=== PATIENT | male | born 1980 | race Caucasian/White ===

== ENCOUNTER 2016-10-05 12:20 | Inpatient (IN) ==
--- NOTE | 2016-10-05 12:32 | Emergency Department Note ---
Disposition Clinical Impression: Suicidal ideation Depression Qualifiers: Depression Type: unspecified Qualified Code(s): F32.9 - Major depressive disorder, single episode, unspecified Disposition: Admitted As Inpatient Condition: Good Referrals: NONE,PCP [Primary Care Provider] - Forms: ED Satisfaction Letter Time of Disposition: 18:30 Psych HPI - General Chief Complaint: ED Psychiatric Symptoms Stated Complaint: SI Time Seen by Provider: 10/05/16 12:26 Source: patient Mode of arrival: ambulatory Limitations: no limitations Nursing Notes Reviewed: Yes Vital Signs Reviewed: Yes - History of Present Illness HPI Narrative: 35-year-old male who comes in stating he's had some worsening depression with thoughts of hurting himself and others. He shouldn't had been on Seroquel but says he cannot tolerate it and she cannot function on it. Pt complaint: suicidal ideation, feels depressed If medical clearance, reason: psychiatric condition Onset (ago): day(s) Duration: constant History of similar episodes: Yes Improves with: none Worsens with: none Context: significant life stressor Associated Psychiatric Symptoms: depression, suicidal ideation Associated symptoms: Reports: denies other symptoms Traumatic symptoms: denies traumatic injury Treatments prior to arrival: none Self harm or harm to others: admits thoughts of self harm, admits thoughts of harming others - Related Data Home Medications Medication Instructions Recorded Confirmed No Known Home Drugs 10/05/16 10/05/16 Allergies Allergy/AdvReac Type Severity Reaction Status Date / Time Penicillins Allergy Hives Verified 12/05/15 16:22 vancomycin Allergy Hives Verified 12/05/15 16:22 All systems ED: reviewed and negative except as stated. Constitutional: Denies: fever, chills, weakness, weight change Eyes: Denies: eye pain, eye discharge, vision change ENT ED: Denies: ear pain, throat pain, dental pain, hearing loss, epistaxis, congestion, dysphagia Cardiovascular: Denies: chest pain, palpitations, dyspnea on exertion, edema, syncope Respiratory: Denies: cough, dyspnea, wheezes, hemoptysis, stridor Gastrointestinal: Denies: abdominal pain, nausea, vomiting, diarrhea, constipation, hematemesis, melena, hematochezia Genitourinary: Denies: urgency, dysuria, frequency, hematuria Musculoskeletal: Denies: back pain, neck pain, arthralgia, myalgia Integumentary: Denies: rash, abrasion, lesions Neurological: Denies: headache, weakness, numbness, paresthesias, confusion, abnormal gait, vertigo Psychiatric: Reports: depression, suicidal thoughts. Denies: anxiety, homicidal thoughts, auditory hallucinations, visual hallucinations Endocrine: Denies: fatigue Hematological/Lymphatic: Denies: easy bleeding, easy bruising Allergic/Immunologic: Denies: facial swelling, urticaria Past Medical History - Past Medical History Medical history: Reports: no medical history Psychiatric history: Reports: anxiety, bipolar, depression, prior suicide attempt, previous psychiatric hospitalization - Social History Smoking Status: Current every day smoker Smokeless Tobacco Status: No Alcohol use: Reports: occasionally Drug use: Reports: marijuana, methamphetamine Physical Exam - General Limitations: no limitations General appearance: alert, in no apparent distress - Head Head exam: atraumatic, normocephalic, normal inspection - Eye Eye exam: Present: normal appearance, PERRL, EOMI - ENT ENT exam: normal exam, normal oropharynx, mucous membranes moist - Neck Neck exam: Present: normal inspection, full ROM, trachea midline - Chest Chest inspection: Present: normal inspection, symmetric chest wall rise - Respiratory Respiratory exam: Present: normal lung sounds bilaterally - Cardiovascular Cardiovascular exam: Present: regular rate, normal rhythm, normal heart sounds - Abdominal Exam Abdominal exam: Present: soft, Non-Tender. Absent: tenderness, distention, guarding, rebound, rigidity - Extremities Exam Extremities exam: Present: normal inspection, full ROM. Absent: tenderness, pedal edema - Expanded Lower Extremity Exam Neurovascular/Tendon exam: Absent: motor deficit, sensory deficit, tendon deficit Gait: observed and normal - Back Exam Back exam: Present: normal inspection, full ROM. Absent: tenderness - Neurological Exam Neurological exam: Present: alert, oriented X3 - Psychiatric Psychiatric exam: Present: normal affect, normal mood - Skin Skin exam: Present: warm, dry, intact, normal color Course - Reevaluation(s) Reevaluation #1: 75-year-old with history depression comes in with suicidal ideation patient will be admitted for further evaluation Time: 18:30 - Consultations Consultation #1: Discussed with psychiatry who will admit the patient. Time: 18:29 Vital Signs Temperature 97.1 F L 10/05/16 12:23 Pulse Rate 67 10/05/16 12:23 Respiratory Rate 18 10/05/16 12:23 Blood Pressure 134/84 10/05/16 12:23 O2 Sat by Pulse Oximetry 99 10/05/16 12:23 Temperature 97.1 F L 10/05/16 12:23 Pulse Rate 67 10/05/16 12:23 Respiratory Rate 18 10/05/16 12:23 Blood Pressure 134/84 10/05/16 12:23 O2 Sat by Pulse Oximetry 99 10/05/16 12:23 Oxygen Delivery Oxygen Delivery Room Air Psych - Lab Data Result diagrams: 10/05/16 12:43 10/05/16 12:43 Lab Results 10/05/16 10/05/16 10/05/16 Range/Units 12:41 12:41 12:43 WBC 7.1 (4.3-11.1) K/mcL RBC 4.79 (4.19-5.50) M/mcL Hgb 14.0 (12.9-16.9) g/dL Hct 43.2 (37.5-50.1) % MCV 90.2 (83.0-100.0) fL MCH 29.2 (28.0-33.3) pg MCHC 32.4 (31.6-35.5) g/dL RDW 13.0 (11.5-14.5) % Plt Count 280 (140-400) K/mcL MPV 9.1 L (9.4-12.4) fL Immature Gran % 0.4 (0-4) % Seg Neutrophils % 51.8 % Lymphocytes % 33.2 % Monocytes % 10.7 % Eosinophils % 3.2 % Basophils % 0.7 % Neutrophils # 3.7 (1.6-8.9) K/mcL Lymphocytes # 2.4 (0.6-4.6) K/mcL Monocytes # 0.8 (0.0-1.3) K/mcL Eosinophils # 0.2 (0.0-0.6) K/mcL Basophils # 0.1 (0.0-0.2) K/mcL Immature Plt Fraction 2.0 (1.1-6.1) % Sodium (136-145) mEq/L Potassium (3.5-4.5) mEq/L Chloride (98-109) mEq/L Carbon Dioxide (19-29) mEq/L BUN (8-26) mg/dL Creatinine (0.72-1.25) mg/dL Est GFR ( Amer) (> 60) Est GFR (Non-Af Amer) (> 60) BUN/Creatinine Ratio (6-26) Glucose (70-99) mg/dL Calculated Osmolality (280-300) Calcium (8.6-10.8) mg/dL Urine Color Yellow (Yellow) Urine Clarity Clear (Clear) Urine pH 7.0 (5.0-8.0) pH Units Ur Specific [place] 1.026 H (1.010-1.025) Urine Protein Negative (Neg-Trace) mg/dL Urine Glucose (UA) Normal (Normal) mg/dL Urine Ketones Negative (Negative) mg/dL Urine Blood Negative (Negative) Urine Nitrite Negative (Negative) Urine Bilirubin Negative (Negative) Urine Urobilinogen Normal (Normal) mg/dL Ur Leukocyte Esterase Negative (Negative) Salicylates (15-30) mg/dL Urine Opiates Screen Negative (Idyhok=013) ng/mL Acetaminophen (10-30) mcg/mL Ur Barbiturates Screen Negative (Wvoiid=973) ng/mL Ur Phencyclidine Scrn Negative (Cutoff=25) ng/mL Ur Amphetamines Screen Positive H (Fdvics=3796) ng/mL U Benzodiazepines Scrn Negative (Bovteg=076) ng/mL Urine Cocaine Screen Negative (Cutoff= 300) ng/mL U Marijuana (THC) Screen Positive H (Cutoff = 50) ng/mL Ethyl Alcohol (0-10) mg/dL 10/05/16 Range/Units 12:43 WBC (4.3-11.1) K/mcL RBC (4.19-5.50) M/mcL Hgb (12.9-16.9) g/dL Hct (37.5-50.1) % MCV (83.0-100.0) fL MCH (28.0-33.3) pg MCHC (31.6-35.5) g/dL RDW (11.5-14.5) % Plt Count (140-400) K/mcL MPV (9.4-12.4) fL Immature Gran % (0-4) % Seg Neutrophils % % Lymphocytes % % Monocytes % % Eosinophils % % Basophils % % Neutrophils # (1.6-8.9) K/mcL Lymphocytes # (0.6-4.6) K/mcL Monocytes # (0.0-1.3) K/mcL Eosinophils # (0.0-0.6) K/mcL Basophils # (0.0-0.2) K/mcL Immature Plt Fraction (1.1-6.1) % Sodium 142 (136-145) mEq/L Potassium 3.9 (3.5-4.5) mEq/L Chloride 107 (98-109) mEq/L Carbon Dioxide 26 (19-29) mEq/L BUN 17 (8-26) mg/dL Creatinine 1.29 H (0.72-1.25) mg/dL Est GFR ( Amer) > 60 (> 60) Est GFR (Non-Af Amer) > 60 (> 60) BUN/Creatinine Ratio 13 (6-26) Glucose 73 (70-99) mg/dL Calculated Osmolality 294 (280-300) Calcium 9.1 (8.6-10.8) mg/dL Urine Color (Yellow) Urine Clarity (Clear) Urine pH (5.0-8.0) pH Units Ur Specific [place] (1.010-1.025) Urine Protein (Neg-Trace) mg/dL Urine Glucose (UA) (Normal) mg/dL Urine Ketones (Negative) mg/dL Urine Blood (Negative) Urine Nitrite (Negative) Urine Bilirubin (Negative) Urine Urobilinogen (Normal) mg/dL Ur Leukocyte Esterase (Negative) Salicylates < 5.0 L (15-30) mg/dL Urine Opiates Screen (Dsuyma=454) ng/mL Acetaminophen < 1.0 L (10-30) mcg/mL Ur Barbiturates Screen (Fwhbhz=742) ng/mL Ur Phencyclidine Scrn (Cutoff=25) ng/mL Ur Amphetamines Screen (Emvxtr=8040) ng/mL U Benzodiazepines Scrn (Kqzyly=167) ng/mL Urine Cocaine Screen (Cutoff= 300) ng/mL U Marijuana (THC) Screen (Cutoff = 50) ng/mL Ethyl Alcohol < 10 (0-10) mg/dL Psychiatric Medical Clearance - Medical Clearance Checklist Does the patient have a NEW psychiatric condition?: No Any abnormalities indicating possible medical illness?: No Any history of medical issues?: No Medical History: No Social History Section defined Any abnormal vital signs prior to transfer?: No Current Vitals: Last Vital Signs Temp 97.1 F L 10/05/16 12:23 Pulse 67 08/31/17 12:23 Resp 18 10/05/16 12:23 BP 134/84 10/05/16 12:23 Pulse Ox 99 10/05/16 12:23 Is the patient intoxicated or cognitively impaired?: No Psychiatric Lab Panel: Drug Levels and Toxicity 10/05/16 10/05/16 12:41 12:43 Urine Opiates Screen Negative Acetaminophen < 1.0 L Ur Barbiturates Screen Negative Ur Phencyclidine Scrn Negative Ur Amphetamines Screen Positive H U Benzodiazepines Scrn Negative Urine Cocaine Screen Negative U Marijuana (THC) Screen Positive H Ethyl Alcohol < 10 Any abnormalities on the physical exam?: No Any abnormal labs?: No Abnormal Labs: Abnormal lab results MPV 9.1 fL (9.4-12.4) L 10/05/16 12:43 Creatinine 1.29 mg/dL (0.72-1.25) H 10/05/16 12:43 Ur Specific [place] 1.026 (1.010-1.025) H 10/05/16 12:41 Salicylates < 5.0 mg/dL (15-30) L 10/05/16 12:43 Acetaminophen < 1.0 mcg/mL (10-30) L 10/05/16 12:43 Ur Amphetamines Screen Positive ng/mL (Gyaxqr=7714) H 10/05/16 12:41 U Marijuana (THC) Screen Positive ng/mL (Cutoff = 50) H 10/05/16 12:41 Does the patient require durable medical equiptment?: No Is the patient ambulatory?: Yes Is the patient a fall risk?: No Has the patient been medically cleared?: Yes Any acute medical condition require Tx prior to transfer?: No Statement of Medical Clearance: I have evaluated the patient, reviewed diagnostic information, and certify that the patient's medical condition is sufficiently stable that transfer to the psychiatric unit does not pose a significant risk of deterioration.
[2016-10-05 12:50] LABS: Basophils # 0.1 K/mcL (0.0-0.2); Basophils % 0.7 %; Eosinophils # 0.2 K/mcL (0.0-0.6); Eosinophils % 3.2 %; Hematocrit 43.2 % (37.5-50.1); Immature Granulocytes % 0.4 % (0-4); Lymphocytes # 2.4 K/mcL (0.6-4.6); Lymphocytes % 33.2 %; Mean Corpuscular HGB Conc 32.4 g/dL (31.6-35.5); Mean Corpuscular Hemoglobin 29.2 pg (28.0-33.3); Mean Corpuscular Volume 90.2 fL (83.0-100.0); Mean Platelet Volume 9.1 fL (9.4-12.4); Monocytes # 0.8 K/mcL (0.0-1.3); Monocytes % 10.7 %; Neutrophils # 3.7 K/mcL (1.6-8.9); Platelet Count 280 K/mcL (140-400); Red Blood Count 4.79 M/mcL (4.19-5.50); Segmented Neutrophils % 51.8 %
[2016-10-05 12:52] LABS: Bilirubin,Urine Negative (Negative); Blood,Urine Negative (Negative); Clarity,Urine Clear (Clear); Color,Urine Yellow (Yellow); Glucose,Urine (UA) Normal (Normal); Ketones,Urine Negative (Negative); Leukocyte Esterase,Urine Negative (Negative); Nitrite,Urine Negative (Negative); Protein,Urine Negative (Neg-Trace); Specific Gravity,Urine 1.026 (1.010-1.025); Urobilinogen,Urine Normal (Normal)
[2016-10-05 12:57] LABS: Amphetamine Screen,Urine Positive ng/mL (Cutoff=1000); Barbiturate Screen,Urine Negative ng/mL (Cutoff=200); Benzodiazepines Screen,Urine Negative ng/mL (Cutoff=200); Cannabinoid Screen,Urine Positive ng/mL (Cutoff = 50); Cocaine Screen,Urine Negative ng/mL (Cutoff= 300); Opiate Screen,Urine Negative ng/mL (Cutoff=300); Phencyclidine Screen,Urine Negative ng/mL (Cutoff=25)
[2016-10-05 13:04] LABS: Acetaminophen < 1.0 mcg/mL (10-30); BUN/Creatinine Ratio 13 (6-26); Blood Urea Nitrogen 17 mg/dL (8-26); Calcium 9.1 mg/dL (8.6-10.8); Carbon Dioxide 26 mEq/L (19-29); Chloride 107 mEq/L (98-109); Ethanol < 10 mg/dL (0-10); Glucose 73 mg/dL (70-99); Osmolality,Calculated 294 (280-300); Potassium 3.9 mEq/L (3.5-4.5); Salicylate < 5.0 mg/dL (15-30); Sodium 142 mEq/L (136-145); eGFR For African Americans > 60 (> 60); eGFR For Non-African Americans > 60 (> 60)
[2016-10-05] MEDS ORDERED: MOM Conc 10 ML UD.LIQ PO PRN (20:38)
[2016-10-05] MEDS ORDERED: Haloperidol Lactate 5 MG/ML VIAL IM PRN (20:38)
[2016-10-05] MEDS ORDERED: Acetaminophen 325 MG TABLET PO PRN (20:38)
[2016-10-05] MEDS ORDERED: *HR* LORazepam 1 MG TABLET PO PRN (20:38)
[2016-10-05] MEDS ORDERED: *HR* LORazepam 2 MG/ML VIAL IM PRN (20:38)
[2016-10-05] MEDS ORDERED: Mag Hydrox/Al Hydrox/Simeth 30 ML UDC PO PRN (20:38)
[2016-10-05] MEDS ORDERED: hydrOXYzine pamoate 25 MG CAPSULE PO PRN (20:38)
[2016-10-05] MEDS: traZODone 50 MG TABLET PO PRN (21:12)
[2016-10-06] MEDS: Nicotine 21 MG PATCH.TD24 TD SCH (09:06)
--- NOTE | 2016-10-06 09:33 | Psychiatry History & Physical ---
Date of Encounter: 10/06/16 Time of Encounter: 09:33 History of Present Illness Patient Stated Chief Complaint: "im hearing voices" Medicare Admission Attestation: For traditional Medicare patients the provided hospital inpatient services are reasonable and necessary and in the case of services not specified as inpatient -only under 42 CFR 419.22 (n), that they are appropriately provided as inpatient services in accordance 42 CFR 412.3. For Critical Access Hospital the patient may reasonably be expected to be discharged or transferred to a hospital within 96 hours after admission to the Critical Access Hospital. Admitted From: Emergency Dept History of Present Illness: Mr. Redman is a 35 year old male with a past psychiatric history of schizoaffective disorder admitted from the emergency department. Pt stated he's had some worsening depression with thoughts of hurting himself and others. On evaluation with patient this morning he was in his room asleep he was somewhat cooperative with the evaluation patient was very irritable when questions were being asked. Patient reports that he is in the hospital because he is hearing voices and he reports he has been hearing these voices for 12 years and reports that every time he comes to get help no be helps him when asked patient today patient reports that emergency department. Patient reports that the only medication he has been tried on for these "voices" is their quality reports that he cannot take that because it makes him too tired. 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 ". Patient reports that he does not have a relationship with his family and reports that he does not have a support system. Patient reports he does not get anything, or any type of disability or SSI. Patient endorsed depressive symptoms patient endorses anxiety symptoms patient did not endorse manic or hypomanic symptoms patient endorses auditory hallucinations patient denied visual hallucinations patient denied paranoia. Patient endorsed suicidal ideations patient denied homicidal ideations patient is agreeable to medication initiation to help with his mood. 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" poor relationship with family pt admits to using drugs but reports he doesnt "abuse" drugs Family psychiatric history: Unknown Family History of Suicide: None - Social History Smoking Status: Current every day smoker Smokeless Tobacco Status: No Alcohol use: occasionally Drug use: marijuana, methamphetamine - Family History Mother Hx Family Medical Disorders: No Father History Unknown: Yes Medications & Allergies No Known Home Drugs 10/05/16 [History] 3 Allergy/AdvReac Type Severity Reaction Status Date / Time Penicillins Allergy Hives Verified 12/05/15 16:22 vancomycin Allergy Hives Verified 12/05/15 16:22 Review of Systems Psychiatric: Reports: depression, anxiety, abnormal sleep pattern, suicidal ideation, auditory hallucinations, difficulty concentrating, hopelessness, irritability, mood swings Mental Status Exam Patient orientation: Yes Person, Yes Time, Yes Place, Yes Circumstance Level of alertness: Other Patient appearance: Unkempt, Disheveled Behavior: anxious, restless, guarded Psychomotor activity: Slowed Eye contact: Minimal Contact Mood description: Depressed, Anxious, Labile, Irritable Affect description: labile, flat Speech pattern: Normal rate, Normal rhythm, Normal tone Speech volume: Normal Thought process: Logical, Linear Thought content: Yes Suicidal ideation, Yes Preoccupation Perceptual disturbances: Yes Auditory hallucinations Memory description: Grossly Intact, Immediate Intact, Recent Intact Patient reliability: Questionable Historian Intelligence estimate: Average Judgment: Limited Insight: Minimal Exam - HEENT Head exam IM: Present: normal inspection Eye exam IM: Present: EOMI ENT exam IM: Present: normal exam - Neurological Neurological exam IM: Present: alert Results - Vital Signs Vital signs: Temp Pulse Resp BP Pulse Ox 97.2 F L 63 16 129/82 99 10/06/16 09:00 10/06/16 09:00 10/06/16 09:00 10/06/16 09:00 10/05/16 12:23 - Labs Labs: Laboratory Last Values WBC 7.1 K/mcL (4.3-11.1) 10/05/16 12:43 RBC 4.79 M/mcL (4.19-5.50) 10/05/16 12:43 Hgb 14.0 g/dL (12.9-16.9) 10/05/16 12:43 Hct 43.2 % (37.5-50.1) 10/05/16 12:43 MCV 90.2 fL (83.0-100.0) 10/05/16 12:43 MCH 29.2 pg (28.0-33.3) 10/05/16 12:43 MCHC 32.4 g/dL (31.6-35.5) 10/05/16 12:43 RDW 13.0 % (11.5-14.5) 10/05/16 12:43 Plt Count 280 K/mcL (140-400) 10/05/16 12:43 MPV 9.1 fL (9.4-12.4) L 10/05/16 12:43 Immature Gran % 0.4 % (0-4) 10/05/16 12:43 Seg Neutrophils % 51.8 % 10/05/16 12:43 Lymphocytes % 33.2 % 10/05/16 12:43 Monocytes % 10.7 % 10/05/16 12:43 Eosinophils % 3.2 % 10/05/16 12:43 Basophils % 0.7 % 10/05/16 12:43 Neutrophils # 3.7 K/mcL (1.6-8.9) 10/05/16 12:43 Lymphocytes # 2.4 K/mcL (0.6-4.6) 10/05/16 12:43 Monocytes # 0.8 K/mcL (0.0-1.3) 10/05/16 12:43 Eosinophils # 0.2 K/mcL (0.0-0.6) 10/05/16 12:43 Basophils # 0.1 K/mcL (0.0-0.2) 10/05/16 12:43 Immature Plt Fraction 2.0 % (1.1-6.1) 10/05/16 12:43 Sodium 142 mEq/L (136-145) 10/05/16 12:43 Potassium 3.9 mEq/L (3.5-4.5) 10/05/16 12:43 Chloride 107 mEq/L (98-109) 10/05/16 12:43 Carbon Dioxide 26 mEq/L (19-29) 10/05/16 12:43 BUN 17 mg/dL (8-26) 10/05/16 12:43 Creatinine 1.29 mg/dL (0.72-1.25) H 10/05/16 12:43 Est GFR ( Amer) > 60 (> 60) 10/05/16 12:43 Est GFR (Non-Af Amer) > 60 (> 60) 10/05/16 12:43 BUN/Creatinine Ratio 13 (6-26) 10/05/16 12:43 Glucose 73 mg/dL (70-99) 10/05/16 12:43 Calculated Osmolality 294 (280-300) 10/05/16 12:43 Calcium 9.1 mg/dL (8.6-10.8) 10/05/16 12:43 Urine Color Yellow (Yellow) 10/05/16 12:41 Urine Clarity Clear (Clear) 10/05/16 12:41 Urine pH 7.0 pH Units (5.0-8.0) 10/05/16 12:41 Ur Specific [place] 1.026 (1.010-1.025) H 10/05/16 12:41 Urine Protein Negative mg/dL (Neg-Trace) 10/05/16 12:41 Urine Glucose (UA) Normal mg/dL (Normal) 10/05/16 12:41 Urine Ketones Negative mg/dL (Negative) 10/05/16 12:41 Urine Blood Negative (Negative) 10/05/16 12:41 Urine Nitrite Negative (Negative) 10/05/16 12:41 Urine Bilirubin Negative (Negative) 10/05/16 12:41 Urine Urobilinogen Normal mg/dL (Normal) 10/05/16 12:41 Ur Leukocyte Esterase Negative (Negative) 10/05/16 12:41 Salicylates < 5.0 mg/dL (15-30) L 10/05/16 12:43 Urine Opiates Screen Negative ng/mL (Njerfv=906) 10/05/16 12:41 Acetaminophen < 1.0 mcg/mL (10-30) L 10/05/16 12:43 Ur Barbiturates Screen Negative ng/mL (Guqqyp=565) 10/05/16 12:41 Ur Phencyclidine Scrn Negative ng/mL (Cutoff=25) 10/05/16 12:41 Ur Amphetamines Screen Positive ng/mL (Iyxpfq=8816) H 10/05/16 12:41 U Benzodiazepines Scrn Negative ng/mL (Tiievu=675) 10/05/16 12:41 Urine Cocaine Screen Negative ng/mL (Cutoff= 300) 10/05/16 12:41 U Marijuana (THC) Screen Positive ng/mL (Cutoff = 50) H 10/05/16 12:41 Ethyl Alcohol < 10 mg/dL (0-10) 10/05/16 12:43 Assessment and Plan (1) Bipolar disorder Current visit: No Status: Acute Plan: Admit inpatient for safety and stabilization, Encourage participation in unit milieu, Group Therapy, Monitor sleep, Monitor appetite Additional Plan: start risperdal 0.5 mg bid Risks, benefits, side effects, alternatives discussed w/pt: Yes Patient agreeable to treatment: Yes Estimated Length of Stay (Days): 5 Qualifiers: Active/Remission status: currently active Current bipolar episode type: mixed Current episode severity: unspecified Qualified Code(s): F31.60 - Bipolar disorder, current episode mixed, unspecified
[2016-10-06] MEDS: risperiDONE 0.25 MG TABLET PO SCH ×2 (10:17→20:53)
[2016-10-07] MEDS: Nicotine 21 MG PATCH.TD24 TD SCH (08:47)
[2016-10-07] MEDS: risperiDONE 0.25 MG TABLET PO SCH ×2 (08:47→20:39)
--- NOTE | 2016-10-07 13:16 | Psychiatry Progress Note ---
Date of Encounter: 10/07/16 Time of Encounter: 01:05 Subjective Interval history: Patient seen and interviewed. History and physical examination reviewed. Patient started to notice improvement in his mood. His symptoms have started to respond to the therapeutic milieu and medications. He is denying any suicidal or homicidal ideations. He is endorsing vague auditory hallucinations. He started to feel more more positive future oriented and hopeful. He is not overtly psychotic or manic. He is tolerating medications fairly well. Overall making progress Review of Systems Psychiatric: Reports: anxiety, auditory hallucinations, difficulty concentrating Objective: Exam Patient orientation: Yes Person, Yes Time, Yes Place Level of alertness: Alert Patient appearance: Appropriate, Well Groomed Behavior: calm, cooperative Psychomotor activity: Normal Eye contact: Maintains Eye Contact Mood description: Anxious Affect description: constricted, dysphoric Speech pattern: Normal rate, Normal rhythm, Normal tone Speech volume: Normal Thought process: Linear, Goal Oriented Thought content: No Suicidal ideation, No Homicidal ideation, No Overt delusions Perceptual disturbances: Yes Auditory hallucinations, No Visual hallucinations Judgment: Fair Insight: Partial Results - Vital Signs Vital Signs: Temp Pulse Resp BP Pulse Ox 97.2 F L 70 16 123/78 99 10/07/16 09:00 10/07/16 09:00 10/07/16 09:00 10/07/16 09:00 10/05/16 12:23 Assessment and Plan (1) Bipolar disorder Current visit: No Status: Acute Plan: Continue hospitalization, Close observation, Suicide Precautions per unit protocol, Encourage participation in unit milieu, Group Therapy, Monitor sleep, Monitor appetite Additional Plan: Possible discharge tomorrow Risks, benefits, side effects, alternatives discussed w/pt: Yes Patient agreeable to treatment: Yes Qualifiers: Active/Remission status: currently active Current bipolar episode type: mixed Current episode severity: unspecified Qualified Code(s): F31.60 - Bipolar disorder, current episode mixed, unspecified Consult Discharge Plan - Plan Referrals: [facility] [Outside] - 10/27/16 11:00 am (The above appointment is with [facility], for outpatient psychiatric assessment and medication management services. Please arrive 30 minutes early to complete paperwork. Please bring your photo ID and medication list. This is the first available appointment. You may contact the office regularly to check for cancellations that may allow you to be seen sooner. Additionally, the new case operator assigned to you will contact you directly to schedule your intake appointment for case management and mental health counseling services. )
[2016-10-07] MEDS: traZODone 50 MG TABLET PO PRN (20:39)
[2016-10-08] MEDS: risperiDONE 0.25 MG TABLET PO SCH (08:27)
[2016-10-08] MEDS: Nicotine 21 MG PATCH.TD24 TD SCH (08:27)
[2016-10-08 09:05] VITALS: BP 119/87
--- NOTE | 2016-10-08 12:41 | Discharge Summary ---
Date of Encounter: 10/08/16 Time of Encounter: 11:59 Diagnosis - Discharge Diagnosis (1) Bipolar disorder Status: Acute Qualifiers: Active/Remission status: currently active Current bipolar episode type: mixed Current episode severity: unspecified Qualified Code(s): F31.60 - Bipolar disorder, current episode mixed, unspecified Medications - Discharge Medications Prescriptions: hydrOXYzine pamoate [HydrOXYzine Pamoate] 50 mg PO TID PRN #90 PRN Reason: Anxiety risperiDONE [RisperDAL] 0.5 mg PO BID #60 tab traZODone [TraZODone] 50 mg PO HS PRN #30 tab PRN Reason: Insomnia hydrOXYzine pamoate [HydrOXYzine Pamoate] 50 mg PO TID PRN #90 10/08/16 [Rx] risperiDONE [RisperDAL] 0.5 mg PO BID #60 tab 10/08/16 [Rx] traZODone [TraZODone] 50 mg PO HS PRN #30 tab 10/08/16 [Rx] 3 Allergy/AdvReac Type Severity Reaction Status Date / Time Penicillins Allergy Hives Verified 12/05/15 16:22 vancomycin Allergy Hives Verified 12/05/15 16:22 Provider Date of admission: 10/05/16 18:36 Primary care physician: PCP NONE Discharging clinician: Maggie Leonard Assessment and Plan - Patient/Caregiver Discharge Instructions Activity: resume usual activities as tolerated Diet: regular diet - Follow up Plan Follow up with: [facility] [Outside] - 10/27/16 11:00 am (The above appointment is with [facility], for outpatient psychiatric assessment and medication management services. Please arrive 30 minutes early to complete paperwork. Please bring your photo ID and medication list. This is the first available appointment. You may contact the office regularly to check for cancellations that may allow you to be seen sooner. Additionally, the new rehabilitation case coordinator assigned to you will contact you directly to schedule your intake appointment for case management and mental health counseling services. ) Overall status at discharge: Stable Disposition: Transfer Other Hospital Course Hospital course: Mr. Redman is a 35 year old male who was hospitalized a diagnoses of bipolar disorder. After reviewing the symptom diagnosis treatment plan and explaining the risks benefits side effects and alternatives to treatment and consequences of no treatment and getting an informed consent from the patient he was started on Risperdal 0.5 mg twice a day for mood stabilization and Vistaril 25 mg 3 times a day when necessary which was increased to 50 mg 3 times a day when necessary for anxiety and trazodone 50 mg at bedtime for insomnia. Patient responded fairly well to the therapeutic milieu his symptoms subsided he became more bright and cheerful mood became more stable he was denying any suicidal or homicidal ideation or any psychotic or manic symptoms on discharge. He was positive and future oriented. He tolerated medications fairly well did not report any side effects. Overall his discharge condition was stable Time spent discussing smoking cessation with patient: 3 to 10 minutes Does patient wish to continue nicotine replacement upon disc: No - Time Spent with Patient Total time spent providing and/or coordinating discharge services: Less than 30 minutes Quality - Multiple Antipsychotics Patient discharged on 2 or more antipsychotic medications: No Procedures - Procedures Procedures: Medication Management, Crisis Stabilization, Supportive Therapy, Group Therapy, Psychoeducational Therapy Mental Status Exam - Mental Status Exam Patient orientation: Yes Person, Yes Time, Yes Place Level of alertness: Alert Patient appearance: Appropriate, Well Groomed Behavior: calm, cooperative Psychomotor activity: Normal Eye contact: Maintains Eye Contact Mood description: Euthymic/stable Affect description: congruent with mood, full range Speech pattern: Normal rate, Normal rhythm, Normal tone Speech Volume: Normal Thought process: Linear, Goal Oriented Thought Content: No Suicidal ideation, No Homicidal ideation, No Overt delusions Perceptual Disturbances: No Auditory hallucinations, No Visual hallucinations Judgment: Limited Insight: Partial
== END 2016-10-08 18:18 | disposition other institution (70) | DRG 753 ==
LOC: EMEROO 12:20 → 1ANU 18:36 → SUATTDRO 18:36 → 1ANU 20:24
PROVIDERS: ADMIT Psychiatry & Neurology Psychiatry; ATTEND Psychiatry & Neurology Psychiatry

== ENCOUNTER 2017-02-21 14:05 | Inpatient (IN) ==
--- NOTE | 2017-02-21 14:32 | Emergency Department Note ---
Disposition Clinical Impression: Suicidal ideation Depression Qualifiers: Depression Type: unspecified Qualified Code(s): F32.9 - Major depressive disorder, single episode, unspecified Disposition: Admitted As Inpatient Condition: Fair Referrals: NONE,PCP [Primary Care Provider] - Forms: ED Satisfaction Letter Time of Disposition: 16:56 Psych HPI - General Chief Complaint: ED Psychiatric Symptoms Stated Complaint: Depressed; SI Time Seen by Provider: 02/21/17 14:18 Source: patient Mode of arrival: ambulatory Limitations: no limitations Nursing Notes Reviewed: Yes Vital Signs Reviewed: Yes - History of Present Illness HPI Narrative: Nontoxic-appearing 36-year-old male presents for evaluation of worsening depression and suicidal ideation. He states that this has gradually gotten worse over the course of the past several months. He states he has not taken his psychiatric medication "in quite some time, because it was not helping". He admits to having several plans in which she would consider inflicting self harm, one of which including "getting a bunch of heroin because it is already laced with fentanyl anyway and it would not take much to do the job". He denies any thoughts of harming others. He does admit to auditory hallucinations , stating "I hear voices screaming inside my head". HE DENIES ANY OTHER COMPLAINTS OR MEDICAL CONCERNS AT THIS TIME. Pt complaint: suicidal ideation, feels depressed Onset (ago): month(s) Duration: getting worse History of similar episodes: Yes Improves with: none Worsens with: none Context: not taking psychiatric medications Alleged intoxication: No Associated Psychiatric Symptoms: depression, suicidal ideation, visual hallucinations Associated symptoms: Reports: denies other symptoms Traumatic symptoms: denies traumatic injury Self harm or harm to others: admits thoughts of self harm, has plan - Related Data Previous Rx's Medication Instructions Recorded hydrOXYzine pamoate [HydrOXYzine 50 mg PO TID PRN #90 10/08/16 Pamoate] risperiDONE [RisperDAL] 0.5 mg PO BID #60 tab 10/08/16 traZODone [TraZODone] 50 mg PO HS PRN #30 tab 10/08/16 Sulfamethoxazole/Trimeth DS 1 each PO BID 7 Days #14 tablet 11/23/16 [Bactrim DS] cephALEXin [Keflex] 500 mg PO QID 7 Days #28 capsule 11/23/16 Allergies Allergy/AdvReac Type Severity Reaction Status Date / Time Penicillins Allergy Hives Verified 11/23/16 08:03 vancomycin Allergy Hives Verified 11/23/16 08:03 All systems ED: reviewed and negative except as stated. Constitutional: Denies: fever, chills, weakness, weight change Eyes: Denies: eye pain, eye discharge, vision change ENT ED: Denies: ear pain, throat pain, dental pain, hearing loss, epistaxis, congestion, dysphagia Cardiovascular: Denies: chest pain, palpitations, dyspnea on exertion, edema, syncope Respiratory: Denies: cough, dyspnea, wheezes, hemoptysis, stridor Gastrointestinal: Denies: abdominal pain, nausea, vomiting, diarrhea, constipation, hematemesis, melena, hematochezia Genitourinary: Denies: urgency, dysuria, frequency, hematuria Musculoskeletal: Denies: back pain, neck pain, arthralgia, myalgia Integumentary: Denies: rash, abrasion, lesions Neurological: Denies: headache, weakness, numbness, paresthesias, confusion, abnormal gait, vertigo Psychiatric: Reports: as per HPI, depression, suicidal thoughts, auditory hallucinations. Denies: anxiety, homicidal thoughts, visual hallucinations Endocrine: Denies: fatigue Hematological/Lymphatic: Denies: easy bleeding, easy bruising Allergic/Immunologic: Denies: facial swelling, urticaria Past Medical History - Past Medical History Attestation: Yes The following information was validated with the patient. Source: patient, nursing notes reviewed Medical history: Reports: no medical history Surgical history: Reports: non-contributory Psychiatric history: Reports: anxiety, bipolar, depression, PTSD, prior suicide attempt, previous psychiatric hospitalization - Social History Smoking Status: Current every day smoker Smokeless Tobacco Status: No Alcohol use: Reports: occasionally Drug use: Reports: marijuana, methamphetamine Physical Exam - General Limitations: no limitations General appearance: alert, in no apparent distress - Head Head exam: atraumatic, normocephalic, normal inspection - Eye Eye exam: Present: normal appearance, PERRL, EOMI. Absent: nystagmus - ENT ENT exam: mucous membranes moist - Neck Neck exam: Present: normal inspection, full ROM, trachea midline - Chest Chest inspection: Present: normal inspection, symmetric chest wall rise - Respiratory Respiratory exam: Present: normal lung sounds bilaterally. Absent: respiratory distress, wheezes, stridor, accessory muscle use, prolonged expiratory phase - Cardiovascular Cardiovascular exam: Present: regular rate, normal rhythm, normal heart sounds - Abdominal Exam Abdominal exam: Present: soft, Non-Tender, normal bowel sounds - Extremities Exam Extremities exam: Present: normal inspection, full ROM. Absent: tenderness, pedal edema - Neurological Exam Neurological exam: Present: alert, oriented X3 - Psychiatric Psychiatric exam: Present: anxious - Skin Skin exam: Present: warm, dry, intact, normal color Course Course Narrative: 1554: I spoke with ELIZABETH Turner with [facility]. He will send a [facility] small business sales representative to evaluate the patient as soon as possible. 1656: [facility] will admit the patient to the inpatient psychiatric unit here at this facility. Vital Signs Temperature 97.9 F 02/21/17 14:06 Pulse Rate 94 02/21/17 14:06 Respiratory Rate 16 02/21/17 14:06 Blood Pressure 118/82 02/21/17 14:06 O2 Sat by Pulse Oximetry 97 02/21/17 14:06 Temperature 97.9 F 02/21/17 14:06 Pulse Rate 94 02/21/17 14:06 Respiratory Rate 16 02/21/17 14:06 Blood Pressure 118/82 02/21/17 14:06 O2 Sat by Pulse Oximetry 97 02/21/17 14:06 Oxygen Delivery Oxygen Delivery Room Air Psych - Lab Data Result diagrams: 02/21/17 14:30 02/21/17 14:30 Lab Results 02/21/17 02/21/17 02/21/17 Range/Units 14:30 14:30 14:40 WBC 8.0 (4.3-11.1) K/mcL RBC 5.76 H (4.19-5.50) M/mcL Hgb 16.2 (12.9-16.9) g/dL Hct 49.8 (37.5-50.1) % MCV 86.5 (83.0-100.0) fL MCH 28.1 (28.0-33.3) pg MCHC 32.5 (31.6-35.5) g/dL RDW 13.6 (11.5-14.5) % Plt Count 333 (140-400) K/mcL MPV 9.4 (9.4-12.4) fL Immature Gran % 0.3 (0-4) % Seg Neutrophils % 53.8 % Lymphocytes % 33.7 % Monocytes % 10.1 % Eosinophils % 1.5 % Basophils % 0.6 % Neutrophils # 4.3 (1.6-8.9) K/mcL Lymphocytes # 2.7 (0.6-4.6) K/mcL Monocytes # 0.8 (0.0-1.3) K/mcL Eosinophils # 0.1 (0.0-0.6) K/mcL Basophils # 0.1 (0.0-0.2) K/mcL Immature Plt Fraction 3.1 (1.1-6.1) % Sodium 137 (136-145) mEq/L Potassium 4.1 (3.5-5.1) mEq/L Chloride 102 (98-107) mEq/L Carbon Dioxide 30 H (23-29) mEq/L BUN 21 H (6-20) mg/dL Creatinine 1.20 (0.70-1.30) mg/dL Est GFR ( Amer) > 60 (> 60) Est GFR (Non-Af Amer) > 60 (> 60) BUN/Creatinine Ratio 18 (6-26) Glucose 81 (70-105) mg/dL Calculated Osmolality 286 (280-300) Calcium 10.1 (8.6-10.3) mg/dL Urine Color Dark Yellow (Yellow) Urine Clarity Clear (Clear) Urine pH 6.0 (5.0-8.0) pH Units Ur Specific Mel[place] > 1.030 H (1.010-1.025) Urine Protein Trace (Neg-Trace) mg/dL Urine Glucose (UA) Normal (Normal) mg/dL Urine Ketones Negative (Negative) mg/dL Urine Blood Negative (Negative) Urine Nitrite Negative (Negative) Urine Bilirubin Small H (Negative) Urine Urobilinogen Normal (Normal) mg/dL Ur Leukocyte Esterase Negative (Negative) Urine Microscopic RBC 3-5 H (0-3) per hpf Urine Microscopic WBC 0-3 (0-3) per hpf Ur Squamous Epith Cells Few (None-Few) per lpf Urine Bacteria None Seen (None-Few) per hpf Hyaline Casts None Seen (None-Few) per lpf Salicylates < 5.0 L (15.0-30.0) mg/dL Urine Opiates Screen (Qklydc=466) ng/mL Acetaminophen < 1.0 L (10-30) mcg/mL Ur Barbiturates Screen (Tieuxm=866) ng/mL Ur Phencyclidine Scrn (Cutoff=25) ng/mL Ur Amphetamines Screen (Hzdisc=3690) ng/mL U Benzodiazepines Scrn (Lovexz=811) ng/mL Urine Cocaine Screen (Cutoff= 300) ng/mL U Marijuana (THC) Screen (Cutoff = 50) ng/mL Ethyl Alcohol < 10 (0-10) mg/dL 02/21/17 Range/Units 14:40 WBC (4.3-11.1) K/mcL RBC (4.19-5.50) M/mcL Hgb (12.9-16.9) g/dL Hct (37.5-50.1) % MCV (83.0-100.0) fL MCH (28.0-33.3) pg MCHC (31.6-35.5) g/dL RDW (11.5-14.5) % Plt Count (140-400) K/mcL MPV (9.4-12.4) fL Immature Gran % (0-4) % Seg Neutrophils % % Lymphocytes % % Monocytes % % Eosinophils % % Basophils % % Neutrophils # (1.6-8.9) K/mcL Lymphocytes # (0.6-4.6) K/mcL Monocytes # (0.0-1.3) K/mcL Eosinophils # (0.0-0.6) K/mcL Basophils # (0.0-0.2) K/mcL Immature Plt Fraction (1.1-6.1) % Sodium (136-145) mEq/L Potassium (3.5-5.1) mEq/L Chloride (98-107) mEq/L Carbon Dioxide (23-29) mEq/L BUN (6-20) mg/dL Creatinine (0.70-1.30) mg/dL Est GFR ( Amer) (> 60) Est GFR (Non-Af Amer) (> 60) BUN/Creatinine Ratio (6-26) Glucose (70-105) mg/dL Calculated Osmolality (280-300) Calcium (8.6-10.3) mg/dL Urine Color (Yellow) Urine Clarity (Clear) Urine pH (5.0-8.0) pH Units Ur Specific [place] (1.010-1.025) Urine Protein (Neg-Trace) mg/dL Urine Glucose (UA) (Normal) mg/dL Urine Ketones (Negative) mg/dL Urine Blood (Negative) Urine Nitrite (Negative) Urine Bilirubin (Negative) Urine Urobilinogen (Normal) mg/dL Ur Leukocyte Esterase (Negative) Urine Microscopic RBC (0-3) per hpf Urine Microscopic WBC (0-3) per hpf Ur Squamous Epith Cells (None-Few) per lpf Urine Bacteria (None-Few) per hpf Hyaline Casts (None-Few) per lpf Salicylates (15.0-30.0) mg/dL Urine Opiates Screen Negative (Hbncjm=582) ng/mL Acetaminophen (10-30) mcg/mL Ur Barbiturates Screen Negative (Goltfm=599) ng/mL Ur Phencyclidine Scrn Negative (Cutoff=25) ng/mL Ur Amphetamines Screen Positive H (Basgod=4907) ng/mL U Benzodiazepines Scrn Negative (Jdwgpo=602) ng/mL Urine Cocaine Screen Negative (Cutoff= 300) ng/mL U Marijuana (THC) Screen Positive H (Cutoff = 50) ng/mL Ethyl Alcohol (0-10) mg/dL Psychiatric Medical Clearance - Medical Clearance Checklist Does the patient have a NEW psychiatric condition?: No Any abnormalities indicating possible medical illness?: No Any history of medical issues?: No Medical History: Acute psychosis (Acute) Bipolar disorder (Acute) Anxiety (Acute) Cannabis dependence (Acute) Amphetamine addiction (Acute) Depression (Acute) Suicidal ideation (Acute) Abscess of skin (Inactive) Generalized abdominal pain (Inactive) Otitis externa (Inactive) No Social History Section defined Any abnormal vital signs prior to transfer?: No Current Vitals: Last Vital Signs Temp 97.9 F 02/21/17 14:06 Pulse 94 02/21/17 14:06 Resp 16 02/21/17 14:06 BP 118/82 02/21/17 14:06 Pulse Ox 97 02/21/17 14:06 Is the patient intoxicated or cognitively impaired?: No Psychiatric Lab Panel: Drug Levels and Toxicity 02/21/17 02/21/17 14:30 14:40 Urine Opiates Screen Negative Acetaminophen < 1.0 L Ur Barbiturates Screen Negative Ur Phencyclidine Scrn Negative Ur Amphetamines Screen Positive H U Benzodiazepines Scrn Negative Urine Cocaine Screen Negative U Marijuana (THC) Screen Positive H Ethyl Alcohol < 10 Any abnormalities on the physical exam?: No Any abnormal labs?: No Abnormal Labs: Abnormal lab results RBC 5.76 M/mcL (4.19-5.50) H 02/21/17 14:30 Carbon Dioxide 30 mEq/L (23-29) H 02/21/17 14:30 BUN 21 mg/dL (6-20) H 02/21/17 14:30 Ur Specific [place] > 1.030 (1.010-1.025) H 02/21/17 14:40 Urine Bilirubin Small (Negative) H 02/21/17 14:40 Urine Microscopic RBC 3-5 per hpf (0-3) H 02/21/17 14:40 Salicylates < 5.0 mg/dL (15.0-30.0) L 02/21/17 14:30 Acetaminophen < 1.0 mcg/mL (10-30) L 02/21/17 14:30 Ur Amphetamines Screen Positive ng/mL (Frdfkd=9114) H 02/21/17 14:40 U Marijuana (THC) Screen Positive ng/mL (Cutoff = 50) H 02/21/17 14:40 Does the patient require durable medical equiptment?: No Is the patient ambulatory?: Yes Is the patient a fall risk?: No Has the patient been medically cleared?: Yes Any acute medical condition require Tx prior to transfer?: No Statement of Medical Clearance: I have evaluated the patient, reviewed diagnostic information, and certify that the patient's medical condition is sufficiently stable that transfer to the psychiatric unit does not pose a significant risk of deterioration.
[2017-02-21 14:38] LABS: Hematocrit 49.8 % (37.5-50.1); Hemoglobin 16.2 g/dL (12.9-16.9); Immature Granulocytes % 0.3 % (0-4); Immature Platelets 3.1 % (1.1-6.1); Lymphocytes % 33.7 %; Mean Corpuscular HGB Conc 32.5 g/dL (31.6-35.5); Mean Corpuscular Hemoglobin 28.1 pg (28.0-33.3); Mean Corpuscular Volume 86.5 fL (83.0-100.0); Mean Platelet Volume 9.4 fL (9.4-12.4); Platelet Count 333 K/mcL (140-400); Red Blood Count 5.76 M/mcL (4.19-5.50); Red Cell Distribution Width 13.6 % (11.5-14.5); Segmented Neutrophils % 53.8 %
[2017-02-21 14:39] LABS: Basophils # 0.1 K/mcL (0.0-0.2); Basophils % 0.6 %; Eosinophils # 0.1 K/mcL (0.0-0.6); Eosinophils % 1.5 %; Lymphocytes # 2.7 K/mcL (0.6-4.6); Monocytes # 0.8 K/mcL (0.0-1.3); Monocytes % 10.1 %; Neutrophils # 4.3 K/mcL (1.6-8.9)
[2017-02-21 14:47] LABS: Calcium 10.1 mg/dL (8.6-10.3); Carbon Dioxide 30 mEq/L (23-29); Chloride 102 mEq/L (98-107); Potassium 4.1 mEq/L (3.5-5.1); Sodium 137 mEq/L (136-145)
[2017-02-21 14:52] LABS: Acetaminophen < 1.0 mcg/mL (10-30); Ethanol < 10 mg/dL (0-10); Salicylate < 5.0 mg/dL (15.0-30.0)
[2017-02-21 14:53] LABS: BUN/Creatinine Ratio 18 (6-26); Blood Urea Nitrogen 21 mg/dL (6-20); Glucose 81 mg/dL (70-105); Osmolality,Calculated 286 (280-300); eGFR For African Americans > 60 (> 60); eGFR For Non-African Americans > 60 (> 60)
[2017-02-21 14:55] LABS: Bilirubin,Urine Small (Negative); Blood,Urine Negative (Negative); Clarity,Urine Clear (Clear); Color,Urine Dark Yellow (Yellow); Glucose,Urine (UA) Normal (Normal); Ketones,Urine Negative (Negative); Leukocyte Esterase,Urine Negative (Negative); Nitrite,Urine Negative (Negative); Protein,Urine Trace mg/dL (Neg-Trace); Specific Gravity,Urine > 1.030 (1.010-1.025); Urobilinogen,Urine Normal (Normal)
[2017-02-21 14:58] LABS: Bacteria,Urine None Seen per hpf (None-Few); Hyaline Casts,Urine None Seen per lpf (None-Few); Squamous Epithelial Cell,Urine Few per lpf (None-Few); WBC,Urine 0-3 per hpf (0-3)
[2017-02-21 14:59] LABS: Amphetamine Screen,Urine Positive ng/mL (Cutoff=1000); Barbiturate Screen,Urine Negative ng/mL (Cutoff=200); Benzodiazepines Screen,Urine Negative ng/mL (Cutoff=200); Cannabinoid Screen,Urine Positive ng/mL (Cutoff = 50); Cocaine Screen,Urine Negative ng/mL (Cutoff= 300); Opiate Screen,Urine Negative ng/mL (Cutoff=300); Phencyclidine Screen,Urine Negative ng/mL (Cutoff=25)
[2017-02-21] MEDS ORDERED: *HR* LORazepam 1 MG TABLET PO PRN (17:08)
[2017-02-21] MEDS ORDERED: MOM Conc 10 ML UD.LIQ PO PRN (17:08)
[2017-02-21] MEDS ORDERED: Haloperidol Lactate 5 MG/ML VIAL IM PRN (17:08)
[2017-02-21] MEDS ORDERED: Mag Hydrox/Al Hydrox/Simeth 30 ML UDC PO PRN (17:08)
[2017-02-21] MEDS ORDERED: *HR* LORazepam 2 MG/ML VIAL IM PRN (17:08)
--- NOTE | 2017-02-22 14:58 | Psychiatry History & Physical ---
Date of Encounter: 02/22/17 Time of Encounter: 14:48 History of Present Illness Patient Stated Chief Complaint: suicidal ideation Medicare Admission Attestation: For traditional Medicare patients the provided hospital inpatient services are reasonable and necessary and in the case of services not specified as inpatient -only under 42 CFR 419.22 (n), that they are appropriately provided as inpatient services in accordance 42 CFR 412.3. For Critical Access Hospital the patient may reasonably be expected to be discharged or transferred to a hospital within 96 hours after admission to the Critical Access Hospital. Admitted From: Home Plans for Post Hospital Care: Home History of Present Illness: Mr. Redman is a 36 year old male with a past diagnosis of Bipolar Disorder who presented to the ER secondary to SI. Client is homeless and using THC and Meth. Conflictual relationships with family. Currently unemployed. Does not feel wanted or loved. Also experiencing some psychosis which client does not seem to recognize. Not responding to internal stimuli but religiously preoccupied. Thoughts are jumbled. Talking about light/dark, good/evil, luciano to the universe, etc. Not pressured or rambling but also not making sense. Able to answer direct questions clearly but when allowed to talk freely he digresses. Last admission to [facility] 09/21. Did not follow through on outpatient referrals. Prior med trials but client claims no success with meds. Willing to try Risperdal today. Denies physical health problems. Somewhat twitchy during interview and frequently scratching skin so he may be experiencing some withdrawals as well. Past Med Surg Social Fam HX - Past Medical History Medical history: no medical history - Past Psychiatric History Psychiatric history: Reports: bipolar, depression, prior suicide attempt, previous psychiatric hospitalization Family psychiatric history: Unknown Family History of Suicide: Unknown - Past Surgical History Surgical History: non-contributory - Social History Smoking Status: Current every day smoker Smokeless Tobacco Status: No Alcohol use: occasionally Drug use: marijuana, methamphetamine Medications & Allergies No Known Home Drugs 02/22/17 [History] 3 Allergy/AdvReac Type Severity Reaction Status Date / Time Penicillins Allergy Hives Verified 02/22/17 10:42 vancomycin Allergy Hives Verified 02/22/17 10:42 Review of Systems Constitutional: Denies: fever, chills, weakness, weight change Eyes: Denies: eye pain, vision change Ears, Nose, Throat: Denies: ear pain, throat pain, dental pain, hearing loss, congestion Cardiovascular: Denies: chest pain, palpitations, dyspnea on exertion Respiratory: Denies: cough, dyspnea, wheezes Gastrointestinal: Denies: abdominal pain, nausea, vomiting, diarrhea, constipation Genitourinary male: Denies: urgency, dysuria, frequency, genital lesions Genitourinary female: Denies: urgency, dysuria, frequency, abnormal menses, dyspareunia Musculoskeletal: Denies: joint swelling, joint pain Integumentary: Denies: rash, lesions, pruritus Neurological: Denies: headache, weakness, numbness, memory loss Endocrine: Denies: fatigue, heat or cold intolerance Hematologic/Lymphatic: Denies: easy bruising, lymphadenopathy Allergic/Immunologic: Denies: urticaria, itchy eyes Mental Status Exam Patient orientation: Yes Person, Yes Time, Yes Place Level of alertness: Alert Patient appearance: Appropriate, Well Groomed Behavior: calm, cooperative Psychomotor activity: Normal Eye contact: Maintains Eye Contact Mood description: Depressed Affect description: congruent with mood Speech pattern: Normal rate, Normal rhythm, Normal tone Speech volume: Normal Thought process: Circumstantial, Tangential Thought content: Yes Suicidal ideation, No Homicidal ideation, Yes Overt delusions, Yes Anabaptism delusion Perceptual disturbances: No Auditory hallucinations, No Visual hallucinations Attention span: Capable of Focused Attention Memory description: Grossly Intact Patient reliability: Questionable Historian Intelligence estimate: Average Judgment: Limited Insight: Partial Exam - HEENT Head exam IM: Present: atraumatic Eye exam IM: Present: EOMI ENT exam IM: Present: mucous membranes moist - Neurological Neurological exam IM: Present: alert, oriented X3 - Respiratory Respiratory exam IM: Present: CTAB - GI/Abdominal GI/Abdominal exam IM: Present: normal bowel sounds - Extremities Extremities exam IM: Present: full ROM - Skin Skin exam IM: Present: normal color Results - Vital Signs Vital signs: Temp Pulse Resp BP Pulse Ox 98.1 F 85 16 110/73 97 02/22/17 09:00 02/22/17 09:00 02/22/17 09:00 02/22/17 09:00 02/21/17 14:06 - Labs Labs: Laboratory Last Values WBC 8.0 K/mcL (4.3-11.1) 02/21/17 14:30 RBC 5.76 M/mcL (4.19-5.50) H 02/21/17 14:30 Hgb 16.2 g/dL (12.9-16.9) 02/21/17 14:30 Hct 49.8 % (37.5-50.1) 02/21/17 14:30 MCV 86.5 fL (83.0-100.0) 02/21/17 14:30 MCH 28.1 pg (28.0-33.3) 02/21/17 14:30 MCHC 32.5 g/dL (31.6-35.5) 02/21/17 14:30 RDW 13.6 % (11.5-14.5) 02/21/17 14:30 Plt Count 333 K/mcL (140-400) 02/21/17 14:30 MPV 9.4 fL (9.4-12.4) 02/21/17 14:30 Immature Gran % 0.3 % (0-4) 02/21/17 14:30 Seg Neutrophils % 53.8 % 02/21/17 14:30 Lymphocytes % 33.7 % 02/21/17 14:30 Monocytes % 10.1 % 02/21/17 14:30 Eosinophils % 1.5 % 02/21/17 14:30 Basophils % 0.6 % 02/21/17 14:30 Neutrophils # 4.3 K/mcL (1.6-8.9) 02/21/17 14:30 Lymphocytes # 2.7 K/mcL (0.6-4.6) 02/21/17 14:30 Monocytes # 0.8 K/mcL (0.0-1.3) 02/21/17 14:30 Eosinophils # 0.1 K/mcL (0.0-0.6) 02/21/17 14:30 Basophils # 0.1 K/mcL (0.0-0.2) 02/21/17 14:30 Immature Plt Fraction 3.1 % (1.1-6.1) 02/21/17 14:30 Sodium 137 mEq/L (136-145) 02/21/17 14:30 Potassium 4.1 mEq/L (3.5-5.1) 02/21/17 14:30 Chloride 102 mEq/L (98-107) 02/21/17 14:30 Carbon Dioxide 30 mEq/L (23-29) H 02/21/17 14:30 BUN 21 mg/dL (6-20) H 02/21/17 14:30 Creatinine 1.20 mg/dL (0.70-1.30) 02/21/17 14:30 Est GFR ( Amer) > 60 (> 60) 02/21/17 14:30 Est GFR (Non-Af Amer) > 60 (> 60) 02/21/17 14:30 BUN/Creatinine Ratio 18 (6-26) 02/21/17 14:30 Glucose 81 mg/dL (70-105) 02/21/17 14:30 Calculated Osmolality 286 (280-300) 02/21/17 14:30 Calcium 10.1 mg/dL (8.6-10.3) 02/21/17 14:30 Urine Color Dark Yellow (Yellow) 02/21/17 14:40 Urine Clarity Clear (Clear) 02/21/17 14:40 Urine pH 6.0 pH Units (5.0-8.0) 02/21/17 14:40 Ur Specific [place] > 1.030 (1.010-1.025) H 02/21/17 14:40 Urine Protein Trace mg/dL (Neg-Trace) 02/21/17 14:40 Urine Glucose (UA) Normal mg/dL (Normal) 02/21/17 14:40 Urine Ketones Negative mg/dL (Negative) 02/21/17 14:40 Urine Blood Negative (Negative) 02/21/17 14:40 Urine Nitrite Negative (Negative) 02/21/17 14:40 Urine Bilirubin Small (Negative) H 02/21/17 14:40 Urine Urobilinogen Normal mg/dL (Normal) 02/21/17 14:40 Ur Leukocyte Esterase Negative (Negative) 02/21/17 14:40 Urine Microscopic RBC 3-5 per hpf (0-3) H 02/21/17 14:40 Urine Microscopic WBC 0-3 per hpf (0-3) 02/21/17 14:40 Ur Squamous Epith Cells Few per lpf (None-Few) 02/21/17 14:40 Urine Bacteria None Seen per hpf (None-Few) 02/21/17 14:40 Hyaline Casts None Seen per lpf (None-Few) 02/21/17 14:40 Salicylates < 5.0 mg/dL (15.0-30.0) L 02/21/17 14:30 Urine Opiates Screen Negative ng/mL (Rjfhso=033) 02/21/17 14:40 Acetaminophen < 1.0 mcg/mL (10-30) L 02/21/17 14:30 Ur Barbiturates Screen Negative ng/mL (Qabnlq=245) 02/21/17 14:40 Ur Phencyclidine Scrn Negative ng/mL (Cutoff=25) 02/21/17 14:40 Ur Amphetamines Screen Positive ng/mL (Jdepab=1439) H 02/21/17 14:40 U Benzodiazepines Scrn Negative ng/mL (Nnbblg=506) 02/21/17 14:40 Urine Cocaine Screen Negative ng/mL (Cutoff= 300) 02/21/17 14:40 U Marijuana (THC) Screen Positive ng/mL (Cutoff = 50) H 02/21/17 14:40 Ethyl Alcohol < 10 mg/dL (0-10) 02/21/17 14:30 Assessment and Plan (1) Bipolar disorder Current visit: No Status: Acute Plan: Admit inpatient for safety and stabilization, Close observation, Suicide Precautions per unit protocol, Encourage participation in unit milieu, Group Therapy, Monitor sleep, Monitor appetite Risks, benefits, side effects, alternatives discussed w/pt: Yes Patient agreeable to treatment: Yes Plans for Post Hospital Care: Home Estimated Length of Stay (Days): 4 Qualifiers: Active/Remission status: currently active Current bipolar episode type: mixed Current episode severity: severe Psychotic features: with psychotic features Qualified Code(s): F31.64 - Bipolar disorder, current episode mixed, severe, with psychotic features
[2017-02-22] MEDS: Acetaminophen 325 MG TABLET PO PRN (18:39)
[2017-02-22] MEDS: traZODone 50 MG TABLET PO PRN (20:52)
[2017-02-22] MEDS: hydrOXYzine pamoate 25 MG CAPSULE PO PRN (20:52)
[2017-02-23] MEDS: risperiDONE 1 MG TABLET PO SCH ×2 (12:20→21:04)
--- NOTE | 2017-02-23 12:43 | Psychiatry Progress Note ---
Date of Encounter: 02/23/17 Time of Encounter: 12:38 Subjective Interval history: Client still religiously preoccupied in group today. Less so when speaking with this policy writer sales but clearly still having symptoms. Unfortunately, Risperdal did not get started as planned. Unclear what happened to the order. Risperdal order re-entered this morning so he will have his first antipsychotic dose today. More open to the idea of rehab today. Wanting to stop meth yesterday but resistant to idea of quitting THC. Today he is open to getting clean from both and seems to recognize it is the only way for him to try and get some stability. Will start looking at rehab placements while treating psychosis. Review of Systems Constitutional: Denies: fever, chills, weakness, weight change Eyes: Denies: eye pain, vision change Ears, Nose, Throat: Denies: ear pain, throat pain, dental pain, hearing loss, congestion Cardiovascular: Denies: chest pain, palpitations, dyspnea on exertion Respiratory: Denies: cough, dyspnea, wheezes Gastrointestinal: Denies: abdominal pain, nausea, vomiting, diarrhea, constipation Musculoskeletal: Denies: joint swelling, joint pain Neurological: Denies: headache, weakness, numbness, memory loss Objective: Exam Patient orientation: Yes Person, Yes Time, Yes Place Level of alertness: Alert Patient appearance: Appropriate, Well Groomed Behavior: calm, cooperative Psychomotor activity: Normal Eye contact: Maintains Eye Contact Mood description: Depressed Affect description: congruent with mood Speech pattern: Normal rate, Normal rhythm, Normal tone Speech volume: Normal Thought process: Linear Thought content: Yes Suicidal ideation, No Homicidal ideation, Yes Overt delusions, Yes Buddhism delusion Perceptual disturbances: No Auditory hallucinations, No Visual hallucinations Judgment: Limited Insight: Partial Results - Vital Signs Vital Signs: Temp Pulse Resp BP Pulse Ox 98.4 F 96 16 124/80 97 02/23/17 08:42 02/23/17 08:42 02/23/17 08:42 02/23/17 08:42 02/21/17 14:06 Assessment and Plan (1) Bipolar disorder Current visit: No Status: Acute Plan: Continue hospitalization, Close observation, Suicide Precautions per unit protocol, Encourage participation in unit milieu, Group Therapy, Monitor sleep, Monitor appetite Risks, benefits, side effects, alternatives discussed w/pt: Yes Patient agreeable to treatment: Yes Qualifiers: Active/Remission status: currently active Current bipolar episode type: mixed Current episode severity: severe Psychotic features: with psychotic features Qualified Code(s): F31.64 - Bipolar disorder, current episode mixed, severe, with psychotic features (2) Amphetamine and other psychostimulant dependence, continuous Current visit: Yes Status: Acute Plan: Continue hospitalization, Close observation, Suicide Precautions per unit protocol, Encourage participation in unit milieu, Group Therapy, Monitor sleep, Monitor appetite Risks, benefits, side effects, alternatives discussed w/pt: Yes Patient agreeable to treatment: Yes Consult Discharge Plan - Plan Referrals: NONE,PCP [Primary Care Provider] -
[2017-02-23 13:19] LABS: Hemoglobin A1C 5.3 %
[2017-02-23] MEDS: traZODone 50 MG TABLET PO PRN (21:07)
[2017-02-24] MEDS: risperiDONE 1 MG TABLET PO SCH ×2 (09:03→20:51)
--- NOTE | 2017-02-24 11:16 | Psychiatry Progress Note ---
Date of Encounter: 02/24/17 Time of Encounter: 11:12 Subjective Interval history: Feeling a little better. Still religiously preoccupied but it came up less in discussion today. Still fixated on wanting to help others and wanting to fix all the suffering in the world. Denying SI today but client states his mood still tanks during certain discussions. Plans to go to rehab now. A bed has been secured for him on 03/05. Staff are working on where he might go in the interim. Psychosis needs to be under better control first but he is cooperating with the [facility]. Client stated today he is hopeful to work again. 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 Client states doctors wanted to take his hand but he would not let them. 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 Review of Systems Constitutional: Denies: fever, chills, weakness, weight change Eyes: Denies: eye pain, vision change Ears, Nose, Throat: Denies: ear pain, throat pain, dental pain, hearing loss, congestion Cardiovascular: Denies: chest pain, palpitations, dyspnea on exertion Respiratory: Denies: cough, dyspnea, wheezes Gastrointestinal: Denies: abdominal pain, nausea, vomiting, diarrhea, constipation Musculoskeletal: Reports: joint pain Neurological: Reports: numbness Objective: Exam Patient orientation: Yes Person, Yes Time, Yes Place Level of alertness: Alert Patient appearance: Appropriate, Well Groomed Behavior: calm, cooperative Psychomotor activity: Normal Eye contact: Maintains Eye Contact Mood description: Depressed Affect description: congruent with mood Speech pattern: Normal rate, Normal rhythm, Normal tone Speech volume: Normal Thought process: Goal Oriented Thought content: No Suicidal ideation, No Homicidal ideation, Yes Overt delusions, Yes Preoccupation, Yes Baptist delusion Perceptual disturbances: No Auditory hallucinations, No Visual hallucinations Judgment: Fair Insight: Partial Results - Vital Signs Vital Signs: Temp Pulse Resp BP Pulse Ox 97.8 F 83 16 121/74 97 02/24/17 09:00 02/24/17 09:00 02/24/17 09:00 02/24/17 09:00 02/21/17 14:06 - Labs Labs: Laboratory Results - last 24 hr 02/23/17 12:53 Est Mean Plasma Glucose 105 Hemoglobin A1c 5.3 Assessment and Plan (1) Bipolar disorder Current visit: No Status: Acute Plan: Continue hospitalization, Close observation, Suicide Precautions per unit protocol, Encourage participation in unit milieu, Group Therapy, Monitor sleep, Monitor appetite Risks, benefits, side effects, alternatives discussed w/pt: Yes Patient agreeable to treatment: Yes Qualifiers: Active/Remission status: currently active Current bipolar episode type: mixed Current episode severity: severe Psychotic features: with psychotic features Qualified Code(s): F31.64 - Bipolar disorder, current episode mixed, severe, with psychotic features (2) Amphetamine and other psychostimulant dependence, continuous Current visit: Yes Status: Acute Plan: Continue hospitalization, Close observation, Suicide Precautions per unit protocol, Encourage participation in unit milieu, Group Therapy, Monitor sleep, Monitor appetite Risks, benefits, side effects, alternatives discussed w/pt: Yes Patient agreeable to treatment: Yes Consult Discharge Plan - Plan Referrals: [facility] [Outside] (You are going into residential substance abuse treatment at [facility] on discharge from the hospital. While there, clinic staff will open a case for you to become a client, and you will be seen daily by the clinic counselors and welfare case worker, both individually and in group. Your mental health treatment needs will be addressed concurrently. You will also be scheduled to see the psychiatric provider for outpatient psychiatric assessment, evaluation of need for medication assisted treatment, and medication management. )
[2017-02-24] MEDS: hydrOXYzine pamoate 25 MG CAPSULE PO PRN ×2 (17:06→20:58)
[2017-02-24] MEDS: traZODone 50 MG TABLET PO PRN (20:51)
[2017-02-25] MEDS: Acetaminophen 325 MG TABLET PO PRN ×3 (01:12→18:25)
[2017-02-25] MEDS: risperiDONE 1 MG TABLET PO SCH ×2 (08:05→20:45)
--- NOTE | 2017-02-25 10:16 | Psychiatry Progress Note ---
Date of Encounter: 02/25/17 Time of Encounter: 10:12 Subjective Interval history: Client states he is "cranky" this morning. Denies SI but endorses bad mood secondary to poor sleep. Client states his right leg has been bothering him. Feels restless. Claims it is new since starting the Risperdal. Could be an EPS type reaction but it is unusual that it is isolated to the right leg. Will add low dose Cogentin to see if it helps. Client is muscular and may be more prone to side effects from the antipsychotic. No alevism preoccupation when talking with this machine sign writer today. However, this symptom tends to come out more in discussion based groups. Does not present as manic or otherwise psychotic today so do not think religiousity would prevent him from participating in rehab at this point. Has a bed 03/05. Will discuss interim placement when treatment team reconvenes tomorrow. Review of Systems Constitutional: Denies: fever, chills, weakness, weight change Eyes: Denies: eye pain, vision change Ears, Nose, Throat: Denies: ear pain, throat pain, dental pain, hearing loss, congestion Cardiovascular: Denies: chest pain, palpitations, dyspnea on exertion Respiratory: Denies: cough, dyspnea, wheezes Gastrointestinal: Denies: abdominal pain, nausea, vomiting, diarrhea, constipation Musculoskeletal: Reports: myalgia Neurological: Reports: other Objective: Exam Patient orientation: Yes Person, Yes Time, Yes Place Level of alertness: Alert Patient appearance: Appropriate, Well Groomed Behavior: calm, cooperative Psychomotor activity: Normal Eye contact: Maintains Eye Contact Mood description: Irritable Affect description: full range Speech pattern: Normal rate, Normal rhythm, Normal tone Speech volume: Normal Thought process: Linear Thought content: No Suicidal ideation, No Homicidal ideation, No Overt delusions , Yes Preoccupation Perceptual disturbances: No Auditory hallucinations, No Visual hallucinations Judgment: Fair Insight: Partial Results - Vital Signs Vital Signs: Temp Pulse Resp BP Pulse Ox 97.9 F 71 16 134/86 97 02/25/17 09:00 02/25/17 09:00 02/25/17 09:00 02/25/17 09:00 02/21/17 14:06 Assessment and Plan (1) Bipolar disorder Current visit: No Status: Acute Plan: Continue hospitalization, Close observation, Suicide Precautions per unit protocol, Encourage participation in unit milieu, Group Therapy, Monitor sleep, Monitor appetite Risks, benefits, side effects, alternatives discussed w/pt: Yes Patient agreeable to treatment: Yes Qualifiers: Active/Remission status: currently active Current bipolar episode type: mixed Current episode severity: severe Psychotic features: with psychotic features Qualified Code(s): F31.64 - Bipolar disorder, current episode mixed, severe, with psychotic features (2) Amphetamine and other psychostimulant dependence, continuous Current visit: Yes Status: Acute Plan: Continue hospitalization, Close observation, Suicide Precautions per unit protocol, Encourage participation in unit milieu, Group Therapy, Monitor sleep, Monitor appetite Risks, benefits, side effects, alternatives discussed w/pt: Yes Patient agreeable to treatment: Yes Consult Discharge Plan - Plan Referrals: [facility] [Outside] (You are going into residential substance abuse treatment at [facility] on discharge from the hospital. While there, clinic staff will open a case for you to become a client, and you will be seen daily by the clinic counselors and high risk case manager, both individually and in group. Your mental health treatment needs will be addressed concurrently. You will also be scheduled to see the psychiatric provider for outpatient psychiatric assessment, evaluation of need for medication assisted treatment, and medication management. )
[2017-02-25] MEDS: hydrOXYzine pamoate 25 MG CAPSULE PO PRN (20:45)
[2017-02-25] MEDS: traZODone 50 MG TABLET PO PRN (20:45)
[2017-02-25] MEDS ORDERED: Melatonin 3 MG TABLET PO PRN (21:00)
[2017-02-26] MEDS: hydrOXYzine pamoate 25 MG CAPSULE PO PRN ×2 (02:11→20:16)
[2017-02-26] MEDS: risperiDONE 1 MG TABLET PO SCH ×2 (08:30→20:16)
[2017-02-26] MEDS: Acetaminophen 325 MG TABLET PO PRN ×2 (09:31→20:20)
--- NOTE | 2017-02-26 13:12 | Psychiatry Progress Note ---
Date of Encounter: 02/26/17 Time of Encounter: 12:25 Subjective Interval history: patient is seen today for follow-up. He is focused on getting into rehabilitation but also request for some "a pain in my hip." We discussed that gabapentin would not be a good choice if he is looking to go to rehabilitation for substance abuse. He denies side effects from meds today. He was in his room and refused groups. No adventist preoccupation or psychosis noted on exam today. Patient may go to [facility] until he can get into rehabilitation. Review of Systems Musculoskeletal: Reports: joint pain Psychiatric: Reports: difficulty concentrating, irritability. Denies: suicidal ideation, auditory hallucinations, visual hallucinations Objective: Exam Patient orientation: Yes Person, Yes Time, Yes Place Level of alertness: Alert Patient appearance: Appropriate Behavior: calm, guarded Psychomotor activity: Normal Mood description: Euthymic/stable Affect description: congruent with mood Speech pattern: Normal rate, Normal rhythm, Normal tone Speech volume: Normal Thought process: Intact, Logical Thought content: No Suicidal ideation, No Homicidal ideation Perceptual disturbances: No Reacting to internal stimuli, No Auditory hallucinations, No Visual hallucinations Judgment: Limited Insight: Minimal Results - Vital Signs Vital Signs: Temp Pulse Resp BP Pulse Ox 98.8 F 94 16 125/74 97 02/26/17 09:00 02/26/17 09:00 02/26/17 09:00 02/26/17 09:00 02/21/17 14:06 Assessment and Plan (1) Bipolar disorder Current visit: No Status: Acute Plan: Continue hospitalization, Close observation, Suicide Precautions per unit protocol, Encourage participation in unit milieu, Group Therapy, Monitor sleep, Monitor appetite Additional Plan: Continue current medications. Continue to monitor for side effects. Encourage group attendance. Risks, benefits, side effects, alternatives discussed w/pt: Yes Patient agreeable to treatment: Yes Qualifiers: Active/Remission status: currently active Current bipolar episode type: mixed Current episode severity: severe Psychotic features: with psychotic features Qualified Code(s): F31.64 - Bipolar disorder, current episode mixed, severe, with psychotic features (2) Amphetamine and other psychostimulant dependence, continuous Current visit: Yes Status: Acute Plan: Continue hospitalization, Close observation, Suicide Precautions per unit protocol, Encourage participation in unit milieu, Group Therapy, Monitor sleep, Monitor appetite Additional Plan: Likely discharge to [facility] prior to starting his rehabilitation for methamphetamine. Risks, benefits, side effects, alternatives discussed w/pt: Yes Patient agreeable to treatment: Yes Consult Discharge Plan - Plan [facility]: [facility] [Outside] (You are going into residential substance abuse treatment at [facility] on discharge from the hospital. While there, clinic staff will open a case for you to become a client, and you will be seen daily by the clinic counselors and director case, both individually and in group. Your mental health treatment needs will be addressed concurrently. You will also be scheduled to see the psychiatric provider for outpatient psychiatric assessment, evaluation of need for medication assisted treatment, and medication management. )
[2017-02-26] MEDS: traZODone 50 MG TABLET PO PRN (20:15)
[2017-02-27] MEDS: Acetaminophen 325 MG TABLET PO PRN ×2 (07:41→21:08)
[2017-02-27] MEDS: risperiDONE 1 MG TABLET PO SCH (08:55)
--- NOTE | 2017-02-27 10:41 | Psychiatry Progress Note ---
Date of Encounter: 02/27/17 Time of Encounter: 10:10 Subjective Interval history: Maximino is seen today for follow-up. He reports that he is having trouble sleeping because of the feeling of restlessness. "I just cannot sit still." He is pretty sure this is related to starting the Risperdal. He is willing to try a different medication for his symptoms but does not want to make the changes of the needs of his discharge will be moved back. We discussed the importance of being on the right medication and having minimal side effects to improve. He does report he is tired today and his mood is irritable because he slept well. He denies SI or HI. Review of Systems Constitutional: Denies: fever, chills, weakness, weight change Eyes: Denies: eye pain, vision change Ears, Nose, Throat: Denies: ear pain, throat pain, dental pain, hearing loss, congestion Cardiovascular: Denies: chest pain, palpitations, dyspnea on exertion Respiratory: Denies: cough, dyspnea, wheezes Gastrointestinal: Denies: abdominal pain, nausea, vomiting, diarrhea, constipation Musculoskeletal: Denies: joint swelling, joint pain Neurological: Reports: other (Restlessness) Psychiatric: Reports: difficulty concentrating, irritability, mood swings. Denies: suicidal ideation, auditory hallucinations, visual hallucinations Objective: Exam Patient orientation: Yes Person, Yes Time, Yes Place Level of alertness: Alert Patient appearance: Appropriate Behavior: calm, cooperative Psychomotor activity: Normal Eye contact: Minimal Contact Mood description: Irritable Patient description of mood: "I feel restless." Affect description: congruent with mood Speech pattern: Normal rate, Normal rhythm, Normal tone Speech volume: Normal Thought process: Intact, Logical Thought content: No Suicidal ideation, No Homicidal ideation Perceptual disturbances: No Auditory hallucinations, No Visual hallucinations Judgment: Limited Insight: Partial Results - Vital Signs Vital Signs: Temp Pulse Resp BP Pulse Ox 98.6 F 93 18 124/79 97 02/27/17 09:00 02/27/17 09:00 02/27/17 09:00 02/27/17 09:00 02/21/17 14:06 Assessment and Plan (1) Bipolar disorder Current visit: No Status: Acute Plan: Continue hospitalization, Close observation, Suicide Precautions per unit protocol, Encourage participation in unit milieu, Group Therapy, Monitor sleep, Monitor appetite Additional Plan: We will discontinue Risperdal and start Geodon for improvement of mood symptoms. Continue to monitor for side effects. Plans for discharge over the next couple of days depending on when a bed is available. Encourage group participation. Risks, benefits, side effects, alternatives discussed w/pt: Yes Patient agreeable to treatment: Yes Qualifiers: Active/Remission status: currently active Current bipolar episode type: mixed Current episode severity: severe Psychotic features: with psychotic features Qualified Code(s): F31.64 - Bipolar disorder, current episode mixed, severe, with psychotic features (2) Amphetamine and other psychostimulant dependence, continuous Current visit: Yes Status: Acute Risks, benefits, side effects, alternatives discussed w/pt: Yes Patient agreeable to treatment: Yes Consult Discharge Plan - Plan Referrals: [facility] [Outside] (You are going into residential substance abuse treatment at [facility] on discharge from the hospital. While there, clinic staff will open a case for you to become a client, and you will be seen daily by the clinic counselors and correctional counselor/case manager, both individually and in group. Your mental health treatment needs will be addressed concurrently. You will also be scheduled to see the psychiatric provider for outpatient psychiatric assessment, evaluation of need for medication assisted treatment, and medication management. )
[2017-02-27] MEDS: Ziprasidone 20 MG CAPSULE PO SCH (21:06)
[2017-02-27] MEDS: hydrOXYzine pamoate 25 MG CAPSULE PO PRN (21:06)
[2017-02-27] MEDS: traZODone 50 MG TABLET PO PRN (21:06)
--- NOTE | 2017-02-28 09:24 | Discharge Summary ---
Date of Encounter: 02/28/17 Time of Encounter: 08:40 Diagnosis - Discharge Diagnosis (1) Bipolar disorder Priority: Primary Status: Acute Qualifiers: Active/Remission status: currently active Current bipolar episode type: mixed Current episode severity: severe Psychotic features: with psychotic features Qualified Code(s): F31.64 - Bipolar disorder, current episode mixed, severe, with psychotic features (2) Amphetamine and other psychostimulant dependence, continuous Status: Acute Medications - Discharge Medications Prescriptions: hydrOXYzine pamoate [HydrOXYzine Pamoate] 25 mg PO TID PRN #90 capsule PRN Reason: Anxiety Melatonin 3 mg PO HS PRN #30 tablet PRN Reason: Insomnia Propranolol [Inderal] 10 mg PO BID #60 tablet traZODone [TraZODone] 50 mg PO HS PRN #30 tablet PRN Reason: Insomnia Ziprasidone [Geodon] 20 mg PO BID #60 capsule Melatonin 3 mg PO HS PRN #30 tablet 02/28/17 [Rx] Propranolol [Inderal] 10 mg PO BID #60 tablet 02/28/17 [Rx] Ziprasidone [Geodon] 20 mg PO BID #60 capsule 02/28/17 [Rx] hydrOXYzine pamoate [HydrOXYzine Pamoate] 25 mg PO TID PRN #90 capsule 02/28/17 [Rx] traZODone [TraZODone] 50 mg PO HS PRN #30 tablet 02/28/17 [Rx] 3 Allergy/AdvReac Type Severity Reaction Status Date / Time Penicillins Allergy Hives Verified 02/22/17 10:42 vancomycin Allergy Hives Verified 02/22/17 10:42 Results Procedures and tests throughout hospitalization: Completed Lab Orders Category Date Time Status Hgb A1C Routine Lab 02/23/17 12:53 Completed Provider Date of admission: 02/21/17 17:01 Primary care physician: PCP NONE Discharging clinician: Shima Rivero Assessment and Plan - Patient/Caregiver Discharge Instructions Activity: resume usual activities as tolerated Diet: regular diet - Follow up Plan Follow up with: [facility] [Outside] (You are going into residential substance abuse treatment at [facility] on discharge from the hospital. While there, clinic staff will open a case for you to become a client, and you will be seen daily by the clinic counselors and home health care case manager, both individually and in group. Your mental health treatment needs will be addressed concurrently. You will also be scheduled to see the psychiatric provider for outpatient psychiatric assessment, evaluation of need for medication assisted treatment, and medication management. ) Functional capacity at discharge: independent ambulation Overall status at discharge: Stable Disposition: Transfer Inpatient Rehab Fac Hospital Course Hospital course: Mr. Redman is a 36 year old male with a history of bipolar disorder as well as cannabis and methamphetamine dependence who presented to the hospital with increasing depression. He was also religiously preoccupied and disorganized. Patient was admitted to [facility] for psychiatric stabilization. He was incorporated into the therapeutic milieu and group and individual as well as recreational therapy. He was also offered psychoeducational material. He was placed on suicide precautions. Patient has a history of noncompliance and not following up with outpatient treatment. He was initially started on Risperdal is causing restlessness. Patient was transitioned to Geodon and tolerated this medication well. Throughout the course of the hospital stay the patient. Also became more organized and less paranoid. He was willing to continue treatment as an outpatient follow-up with substance abuse treatment as well. At the time of discharge he denied delusions. He denied auditory or visual hallucinations. Medications sent to [place] pharmacy and [facility] to starting his substance abuse treatment - Time Spent with Patient Total time spent providing and/or coordinating discharge services: Less than 30 minutes Quality - Multiple Antipsychotics Patient discharged on 2 or more antipsychotic medications: No Procedures - Procedures Procedures: Medication Management, Crisis Stabilization, Supportive Therapy, Group Therapy, Psychoeducational Therapy Mental Status Exam - Mental Status Exam Patient orientation: Yes Person, Yes Time, Yes Place Level of alertness: Alert Patient appearance: Appropriate, Well Groomed Behavior: calm, cooperative Psychomotor activity: Normal Eye contact: Maintains Eye Contact Mood description: Euthymic/stable Affect description: congruent with mood, full range Speech pattern: Normal rate, Normal rhythm, Normal tone Speech Volume: Normal Thought process: Linear, Goal Oriented Thought Content: No Suicidal ideation, No Homicidal ideation, No Overt delusions Perceptual Disturbances: No Auditory hallucinations, No Visual hallucinations Judgment: Limited Insight: Partial
[2017-02-28] MEDS: Ziprasidone 20 MG CAPSULE PO SCH (09:34)
[2017-02-28 10:03] VITALS: BP 125/77
== END 2017-02-28 11:55 | DRG 753 ==
LOC: EMEROO 14:05 → SUATTDRO 17:01 → 1ANU 17:01
PROVIDERS: ADMIT Psychiatry & Neurology Psychiatry; ATTEND Student in an Organized Health Care Education/Training Program

== ENCOUNTER 2020-11-28 15:42 | Observation (INO) ==
[2020-11-28] MEDS ORDERED: Tdap (Boostrix) Vaccine 0.5 ML SYRINGE IM ONE (16:02)
[2020-11-28] MEDS ORDERED: cefTRIAXone 1,000 MG in 0.9 % Sodium Chloride Mini Bag 100 ML IVPB ONE (16:03)
[2020-11-28] MEDS ORDERED: Doxycycline 100 MG in 0.9 % Sodium Chloride Mini Bag 100 ML IVPB ONE (16:07)
[2020-11-28] MEDS ORDERED: Mag Hydrox/Al Hydrox/Simeth 30 ML UDC PO PRN (17:08)
[2020-11-28] MEDS ORDERED: Naloxone 0.4 MG/ML INJ IVP PRN (17:08)
[2020-11-28] MEDS ORDERED: Ondansetron ODT 4 MG TAB.RAPDIS SL PRN (17:08)
[2020-11-28] MEDS ORDERED: Melatonin 3 MG TABLET PO PRN (17:08)
[2020-11-28] MEDS ORDERED: Acetaminophen 325 MG TABLET PO PRN (17:08)
[2020-11-28 17:37] LABS: Basophils % 0.3 %; Eosinophils # 0.1 K/mcL (0.0-0.6); Eosinophils % 1.1 %; Hematocrit 40.5 % (37.5-50.1); Hemoglobin 13.3 g/dL (12.9-16.9); Immature Granulocytes % 0.6 % (0-4); Lymphocytes # 1.5 K/mcL (0.6-4.6); Lymphocytes % 14.7 %; Mean Corpuscular HGB Conc 32.8 g/dL (31.6-35.5); Mean Corpuscular Hemoglobin 29.7 pg (28.0-33.3); Mean Corpuscular Volume 90.4 fL (83.0-100.0); Mean Platelet Volume 8.8 fL (9.4-12.4); Monocytes % 9.2 %; Neutrophils # 7.7 K/mcL (1.6-8.9); Platelet Count 315 K/mcL (140-400); Red Blood Count 4.48 M/mcL (4.19-5.50); Red Cell Distribution Width 12.7 % (11.5-14.5); Segmented Neutrophils % 74.1 %; White Blood Count 10.4 K/mcL (4.3-11.1)
[2020-11-28 17:57] LABS: BUN/Creatinine Ratio 17 (6-26); Blood Urea Nitrogen 17 mg/dL (6-20); Calcium 9.2 mg/dL (8.6-10.3); Carbon Dioxide 28 mEq/L (23-29); Chloride 102 mEq/L (98-107); Glucose 110 mg/dL (70-105); Osmolality,Calculated 284 (280-300); Potassium 3.9 mEq/L (3.5-5.1); Sodium 136 mEq/L (136-145); eGFR For African Americans > 60 (> 60); eGFR For Non-African Americans > 60 (> 60)
[2020-11-28 17:59] LABS: C-Reactive Protein 16 mg/L (Less than 10)
[2020-11-28] MEDS: cloNIDine HCL 0.1 MG TABLET PO SCH ×2 (19:42→19:50)
[2020-11-28] MEDS: Mirtazapine 15 MG TABLET PO SCH (19:42)
[2020-11-29 05:52] LABS: Basophils # 0.1 K/mcL (0.0-0.2); Basophils % 0.5 %; Eosinophils # 0.2 K/mcL (0.0-0.6); Eosinophils % 1.8 %; Hematocrit 41.6 % (37.5-50.1); Hemoglobin 13.6 g/dL (12.9-16.9); Immature Granulocytes % 0.4 % (0-4); Lymphocytes # 2.4 K/mcL (0.6-4.6); Lymphocytes % 24.7 %; Mean Corpuscular HGB Conc 32.7 g/dL (31.6-35.5); Mean Corpuscular Hemoglobin 29.8 pg (28.0-33.3); Mean Corpuscular Volume 91.2 fL (83.0-100.0); Mean Platelet Volume 8.8 fL (9.4-12.4); Monocytes # 1.1 K/mcL (0.0-1.3); Monocytes % 11.3 %; Neutrophils # 5.9 K/mcL (1.6-8.9); Platelet Count 317 K/mcL (140-400); Red Blood Count 4.56 M/mcL (4.19-5.50); Red Cell Distribution Width 13.1 % (11.5-14.5); Segmented Neutrophils % 61.3 %; White Blood Count 9.6 K/mcL (4.3-11.1)
[2020-11-29] MEDS ORDERED: Doxycycline 100 MG in 0.9 % Sodium Chloride Mini Bag 100 ML IVPB SCH (06:00)
[2020-11-29 06:10] LABS: BUN/Creatinine Ratio 14 (6-26); Blood Urea Nitrogen 16 mg/dL (6-20); Calcium 9.2 mg/dL (8.6-10.3); Carbon Dioxide 28 mEq/L (23-29); Chloride 105 mEq/L (98-107); Glucose 107 mg/dL (70-105); Osmolality,Calculated 288 (280-300); Potassium 4.3 mEq/L (3.5-5.1); Sodium 138 mEq/L (136-145); eGFR For African Americans > 60 (> 60); eGFR For Non-African Americans > 60 (> 60)
[2020-11-29] MEDS: risperiDONE 1 MG TABLET PO SCH (10:49)
[2020-11-29] MEDS: cefTRIAXone 1,000 MG in Water for inj. (sterile) 10 ML IVP SCH (10:50)
[2020-11-29] MEDS: cloNIDine HCL 0.1 MG TABLET PO SCH ×3 (10:50→23:06)
[2020-11-29] MEDS: Doxycycline 100 MG CAPSULE PO SCH ×2 (14:42→23:06)
[2020-11-29] MEDS: Mirtazapine 15 MG TABLET PO SCH (23:07)
[2020-11-30] MEDS: Doxycycline 100 MG CAPSULE PO SCH ×2 (09:08→20:55)
[2020-11-30] MEDS: cefTRIAXone 1,000 MG in Water for inj. (sterile) 10 ML IVP SCH (09:08)
[2020-11-30] MEDS: risperiDONE 1 MG TABLET PO SCH (09:08)
[2020-11-30] MEDS: cloNIDine HCL 0.1 MG TABLET PO SCH ×3 (09:08→20:55)
[2020-11-30 11:02] VITALS: O2SAT 97
[2020-11-30 18:43] VITALS: BP 116/51; PULSE 91; TEMP 98.4
[2020-11-30] MEDS: Mirtazapine 15 MG TABLET PO SCH (20:55)
[2020-12-01] MEDS: Doxycycline 100 MG CAPSULE PO SCH (09:11)
[2020-12-01] MEDS: cefTRIAXone 1,000 MG in Water for inj. (sterile) 10 ML IVP SCH (09:11)
[2020-12-01] MEDS: cloNIDine HCL 0.1 MG TABLET PO SCH (09:11)
[2020-12-01] MEDS: risperiDONE 1 MG TABLET PO SCH (09:11)
== END 2020-12-01 14:52 | disposition home or self-care (01) ==
LOC: EMEROOARM 15:42 → 3BNU 15:42 → SUATTDRO 18:29 → 3BNU 19:26
PROVIDERS: ADMIT Family Medicine; ATTEND Pharmacist

== ENCOUNTER 2021-04-09 15:27 | Inpatient (IN) ==
[2021-04-09 16:40] LABS: Basophils # 0.1 K/mcL (0.0-0.2); Basophils % 0.4 %; Eosinophils % 0.2 %; Immature Granulocytes % 0.5 % (0-4); Lymphocytes # 1.6 K/mcL (0.6-4.6); Lymphocytes % 9.6 %; Mean Corpuscular HGB Conc 32.6 g/dL (31.6-35.5); Mean Corpuscular Hemoglobin 28.6 pg (28.0-33.3); Mean Corpuscular Volume 87.8 fL (83.0-100.0); Mean Platelet Volume 8.9 fL (9.4-12.4); Monocytes # 1.1 K/mcL (0.0-1.3); Monocytes % 6.3 %; Platelet Count 326 K/mcL (140-400); Red Blood Count 5.24 M/mcL (4.19-5.50); Red Cell Distribution Width 12.9 % (11.5-14.5); White Blood Count 16.9 K/mcL (4.3-11.1)
[2021-04-09 16:44] LABS: Estimated Average Glucose 120 mg/dl; Hemoglobin A1C 5.8 %
[2021-04-09 17:00] LABS: Acetaminophen < 10 mcg/mL (10-20); BUN/Creatinine Ratio 14 (6-26); Blood Urea Nitrogen 25 mg/dL (6-20); Carbon Dioxide 27 mEq/L (23-29); Chloride 98 mEq/L (98-107); Chol/HDL Ratio 4.7 (0-4.9); Cholesterol 270 mg/dL (< 200); Ethanol < 10 mg/dL (Less than 10); Glucose 76 mg/dL (70-105); HDL Cholesterol 58 mg/dL (40-59); LDL Cholesterol,Calculated 193 mg/dL (< 100); Osmolality,Calculated 283 (280-300); Potassium 4.9 mEq/L (3.5-5.1); Salicylate < 2.5 mg/dL (15.0-30.0); Sodium 135 mEq/L (136-145); Triglycerides 96 mg/dL (< 150); eGFR For African Americans 52 (> 60); eGFR For Non-African Americans 43 (> 60)
[2021-04-09] MEDS ORDERED: 0.9 % Sodium Chloride 1,000 ML IVC ONE (17:08)
[2021-04-09 18:04] LABS: Bilirubin,Urine Negative (Negative); Blood,Urine Negative (Negative); Clarity,Urine Clear (Clear); Color,Urine Yellow (Yellow); Glucose,Urine (UA) Normal (Normal); Hyaline Casts,Urine Many per lpf (None Seen); Ketones,Urine 20 mg/dL (Negative); Leukocyte Esterase,Urine Negative (Negative); Mucus,Urine Few per lpf (None-Few); Nitrite,Urine Negative (Negative); PH,Urine 5.5 pH Units (5.0-8.0); Protein,Urine 30 mg/dL (Neg-Trace); RBC,Urine 0-3 per hpf (0-3); Specific Gravity,Urine 1.022 (1.010-1.025); Urobilinogen,Urine Normal (Normal); WBC,Urine 0-3 per hpf (0-3)
[2021-04-09 18:14] LABS: Amphetamine Screen,Urine Positive ng/mL (Cutoff=1000); Barbiturate Screen,Urine Negative ng/mL (Cutoff=200); Benzodiazepines Screen,Urine Negative ng/mL (Cutoff=200); Cannabinoid Screen,Urine Positive ng/mL (Cutoff = 50); Cocaine Screen,Urine Negative ng/mL (Cutoff= 300); Opiate Screen,Urine Negative ng/mL (Cutoff=300); Phencyclidine Screen,Urine Negative ng/mL (Cutoff=25)
[2021-04-09 20:20] LABS: BUN/Creatinine Ratio 17 (6-26); Blood Urea Nitrogen 24 mg/dL (6-20); Calcium 8.7 mg/dL (8.6-10.3); Carbon Dioxide 28 mEq/L (23-29); Chloride 100 mEq/L (98-107); Glucose 98 mg/dL (70-105); Osmolality,Calculated 282 (280-300); Potassium 3.9 mEq/L (3.5-5.1); Sodium 134 mEq/L (136-145); eGFR For African Americans > 60 (> 60); eGFR For Non-African Americans 55 (> 60)
[2021-04-09] MEDS ORDERED: Ziprasidone 20 MG CAPSULE PO STA (22:23)
[2021-04-09 23:51] LABS: Influenza A PCR Negative (Negative); Influenza B PCR Negative (Negative); Resp. Syncytial Virus PCR Negative (Negative)
[2021-04-09 23:53] LABS: SARS-CoV-2 by PCR (In House) Negative (Negative)
[2021-04-10] MEDS ORDERED: Haloperidol Lactate 5 MG/ML VIAL IM PRN (00:13)
[2021-04-10] MEDS ORDERED: QUEtiapine Fumarate 25 MG TABLET PO PRN (00:13)
[2021-04-10] MEDS ORDERED: haloperidoL 5 MG TABLET PO PRN (00:13)
[2021-04-10] MEDS ORDERED: *HR* LORazepam 2 MG/ML VIAL IM PRN (00:13)
[2021-04-10] MEDS ORDERED: *HR* LORazepam 1 MG TABLET PO PRN (00:13)
[2021-04-10] MEDS ORDERED: Mag Hydrox/Al Hydrox/Simeth 30 ML UDC PO PRN (08:15)
[2021-04-10] MEDS ORDERED: MOM Conc 10 ML UD.LIQ PO PRN (08:15)
[2021-04-10] MEDS: Nicotine 14 MG PATCH.TD24 TD SCH (08:17)
[2021-04-10] MEDS: Acetaminophen 325 MG TABLET PO PRN (13:43)
[2021-04-10] MEDS: hydrOXYzine pamoate 25 MG CAPSULE PO PRN (17:52)
[2021-04-10] MEDS: Benzocaine 20% 12 APPL GEL..GRAM. TP PRN (19:35)
[2021-04-10] MEDS: QUEtiapine Fumarate 100 MG TABLET PO SCH (20:50)
[2021-04-11] MEDS: Benzocaine 20% 12 APPL GEL..GRAM. TP PRN ×2 (01:21→12:57)
[2021-04-11] MEDS: Ibuprofen 400 MG TABLET PO PRN ×3 (05:11→18:16)
[2021-04-11] MEDS: Nicotine 14 MG PATCH.TD24 TD SCH (10:18)
[2021-04-11] MEDS: Azithromycin 250 MG TABLET PO SCH (16:11)
[2021-04-11] MEDS: hydrOXYzine pamoate 25 MG CAPSULE PO PRN (20:37)
[2021-04-11] MEDS: QUEtiapine Fumarate 100 MG TABLET PO SCH (20:37)
[2021-04-11] MEDS: Acetaminophen 325 MG TABLET PO PRN (20:37)
[2021-04-12] MEDS: Ibuprofen 400 MG TABLET PO PRN ×3 (01:13→20:48)
[2021-04-12] MEDS: Azithromycin 250 MG TABLET PO SCH (08:42)
[2021-04-12] MEDS: Nicotine 14 MG PATCH.TD24 TD SCH (08:43)
[2021-04-12] MEDS: hydrOXYzine pamoate 25 MG CAPSULE PO PRN ×2 (08:43→20:47)
[2021-04-12] MEDS: Acetaminophen 325 MG TABLET PO PRN ×2 (09:22→17:49)
[2021-04-12] MEDS: Doxycycline 100 MG CAPSULE PO SCH ×2 (13:34→20:47)
[2021-04-12] MEDS ORDERED: QUEtiapine Fumarate 300 MG TABLET PO SCH (21:00)
[2021-04-13] MEDS: Acetaminophen 325 MG TABLET PO PRN (05:05)
[2021-04-13] MEDS: Ibuprofen 400 MG TABLET PO PRN (07:23)
[2021-04-13 08:00] VITALS: BP 130/89; PULSE 112; TEMP 97.1; O2SAT 95
[2021-04-13] MEDS: Nicotine 14 MG PATCH.TD24 TD SCH (08:18)
[2021-04-13 08:57] LABS: Basophils # 0.1 K/mcL (0.0-0.2); Basophils % 0.8 %; Eosinophils # 0.2 K/mcL (0.0-0.6); Eosinophils % 2.1 %; Hematocrit 43.5 % (37.5-50.1); Hemoglobin 14.8 g/dL (12.9-16.9); Lymphocytes # 2.1 K/mcL (0.6-4.6); Lymphocytes % 25.7 %; Mean Corpuscular Hemoglobin 29.4 pg (28.0-33.3); Mean Corpuscular Volume 86.3 fL (83.0-100.0); Mean Platelet Volume 9.7 fL (9.4-12.4); Monocytes # 0.8 K/mcL (0.0-1.3); Monocytes % 9.9 %; Platelet Count 305 K/mcL (140-400); Red Blood Count 5.04 M/mcL (4.19-5.50); Red Cell Distribution Width 12.9 % (11.5-14.5); Segmented Neutrophils % 60.5 %
[2021-04-13 08:58] LABS: White Blood Count 8.3 K/mcL (4.3-11.1)
[2021-04-13 09:18] LABS: Alanine Aminotransferase 15 Units/L (7-52); Albumin 4.4 g/dL (3.5-5.7); Albumin/Globulin Ratio 1.5 (1.1-2.2); Alkaline Phosphatase 74 Units/L (34-104); Aspartate Amino Transferase 13 Units/L (13-39); BUN/Creatinine Ratio 20 (6-26); Bilirubin,Total 0.3 mg/dL (0.3-1.0); Blood Urea Nitrogen 21 mg/dL (6-20); Calcium 9.7 mg/dL (8.6-10.3); Carbon Dioxide 24 mEq/L (23-29); Chloride 102 mEq/L (98-107); Globulin 2.9 g/dL (2.4-3.5); Glucose 135 mg/dL (70-105); Osmolality,Calculated 287 (280-300); Sodium 136 mEq/L (136-145); Total Protein 7.3 g/dL (6.4-8.9); eGFR For African Americans > 60 (> 60); eGFR For Non-African Americans > 60 (> 60)
== END 2021-04-13 18:00 | disposition home or self-care (01) | DRG 895 ==
LOC: EMEROOARM 15:27 → SUATTDRO 04-10 00:33 → 1ANU 04-10 00:33
PROVIDERS: ADMIT Psychiatry & Neurology Psychiatry; ATTEND Student in an Organized Health Care Education/Training Program